=== PATIENT | female | born 1940 | race Caucasian/White ===

== ENCOUNTER 2019-05-21 20:03 | Observation (INO) ==
--- NOTE | 2019-05-21 20:21 | Emergency Department Note ---
ED Disposition Clinical Impression: Anxiety Pulmonary emboli Qualifiers: Pulmonary embolism type: unspecified Chronicity: acute Acute cor pulmonale presence: without acute cor pulmonale Qualified Code(s): I26.99 - Other pulmonary embolism without acute cor pulmonale Dyspnea Qualifiers: Dyspnea type: unspecified Qualified Code(s): R06.00 - Dyspnea, unspecified Disposition: Admitted as Observation Condition on Discharge: Fair (Stable) Time of Disposition: 23:17 - Critical Care Critical Care Time: No Attestation: On , the high probability of a clinically significant, sudden or life threatening deterioration of the following system(s) required my full and direct attention, intervention and personal management. The time I documented below is in addition to time spent performing reported procedures but includes the following listed in this critical care notation. Medical Decision Making - Medical Records Medical records reviewed: Yes: I reviewed the patient's medical records. - Guicho Inquiry Pt receiving controlled substance: No Guicho was queried for this patient: No Vital Signs: 05/21/19 20:16 05/21/19 20:43 05/21/19 21:00 Temperature 97.6 F Temperature Source Oral Pulse Rate [Right] 89 80 85 Respiratory Rate 20 18 Blood Pressure [Right Arm] 175/82 H 158/96 H 139/85 Blood Pressure Mean [Right Arm] 113 116 103 Blood Pressure Source [Right Arm] Automatic Cuff Blood Pressure Position [Right Arm] Supine 02 Sat by Pulse Oximetry 93 L 96 93 L Oxygen Delivery Method Room Air Room Air - Lab Data Lab results reviewed: Yes: I reviewed the patient's lab results. Lab Results 05/21/19 20:15: WBC 12.2 H, RBC 4.89, Hgb 13.9, Hct 43.7, MCV 89.2, MCH 28.5, MCHC 31.9, RDW 14.3, Plt Count 233, MPV 8.3, Neut % (Auto) 66.2, Lymph % (Auto) 27.5, [place] % (Auto) 4.6, Eos % (Auto) 1.0, Baso % (Auto) 0.7, Neut # (Auto) 8.1 H, Lymph # (Auto) 3.4, [place] # (Auto) 0.6, Eos # (Auto) 0.1, Baso # (Auto) 0.1 05/21/19 20:15: PT 9.0 L, INR 0.86 L, APTT 25.7, D-Dimer 497 H* 05/21/19 20:15: Sodium 139, Potassium 4.1, Chloride 104, Carbon Dioxide 25, Anion Gap 14.1, BUN 28 H, Creatinine 1.30 H, Estimated Creat Clear 40, Estimated GFR 40 L, Est GFR ( Amer) 48 L, Glucose 108 H, Calcium 9.0, Troponin I < 0.02 05/21/19 20:15: B-Natriuretic Peptide 670 H 05/21/19 20:15: Total Bilirubin 0.3, Direct Bilirubin 0.1, Indirect Bilirubin 0.2, AST 18, ALT 30, Alkaline Phosphatase 118 H, Total Protein 6.7, Albumin 3.6 Result diagrams: 05/21/19 20:15 05/21/19 20:15 Orders (Tests/Meds): ED MEDICATIONS Generic Name Dose Route Start Last Admin Trade Name Saul PRN Reason Stop Dose Admin Sodium Chloride 2 ml 05/21/19 22:30 Saline Flush 10ml Syringe IV 06/20/19 22:29 NEEDED PRN to Dilute Lorazepam inj Sodium Chloride 10 ml 05/21/19 22:30 Saline Flush 10ml Syringe IV 06/20/19 22:29 NEEDED PRN Maintain IV Site Sodium Chloride 2 ml 05/21/19 23:15 Saline Flush 10ml Syringe IV 06/20/19 23:14 NEEDED PRN to Dilute Lorazepam inj Sodium Chloride 10 ml 05/21/19 23:15 Saline Flush 10ml Syringe IV 06/20/19 23:14 NEEDED PRN Maintain IV Site Discontinued Medications Generic Name Dose Route Start Last Admin Trade Name Saul PRN Reason Stop Dose Admin Diphenhydramine HCl 25 mg 05/21/19 21:56 05/21/19 21:57 Benadryl 50mg/1ml Vial IV 05/21/19 21:57 25 mg ONCE ONE Administration Enoxaparin Sodium 72 mg 05/21/19 23:15 Lovenox 80mg/0.8ml Syringe SQ 05/21/19 23:16 ONCE ONE Hydralazine HCl 20 mg 05/21/19 20:17 05/21/19 20:44 Apresoline 20mg/Ml 1ml Vial IV 05/21/19 20:18 20 mg ONCE ONE Administration Ioversol 70 ml 05/21/19 22:47 05/21/19 22:49 Rad-Optiray 350 100ml Vial IV 05/21/19 22:48 70 ml ONCE ONE Administration Protocol Lorazepam 0.5 mg 05/21/19 22:30 05/21/19 22:37 Ativan 2mg/Ml Vial IV 05/21/19 22:31 0.5 mg ONCE ONE Administration Lorazepam 0.5 mg 05/21/19 23:15 Ativan 2mg/Ml Vial IV 05/21/19 23:16 ONCE ONE Methylprednisolone Sodium Succinate 125 mg 05/21/19 21:56 05/21/19 21:57 Solu-Medrol 125mg/2ml Vial IV 05/21/19 21:57 125 mg ONCE ONE Administration Sodium Chloride 10 ml 05/21/19 22:47 05/21/19 22:50 Rad-Saline Flush 10ml Syringe IV 05/21/19 22:48 10 ml ONCE ONE Administration Sodium Chloride 40 ml 05/21/19 22:50 05/21/19 22:50 Rad-Ns 50ml Vial IV 05/21/19 22:51 40 ml ONCE ONE Administration ORDERS Category Date Time Status CT Chest w/PE protocol [CT angio chest] Stat Cat Scan 05/21/19 20:50 Taken Troponin I Q3H Lab 05/21/19 23:20 Received Troponin I Q3H Lab 05/22/19 02:15 Ordered ECG Request by /Chapin Stat Y 05/21/19 20:13 Ordered - Radiology Data #1 Image(s): Chest Image Reviewed: Yes I reviewed the patient's radiology image Preliminary reading of PCXR by myself: no free air; elevated right hemidiaphragm; normal mediastinum; no consolidation; mild increase in interstitial lung markings. - CT Data CT Scan: Head, Chest Time Received: 22:[address] Reviewed: Yes: I have viewed the radiologist's interpretation Findings Narrative: 22:00 CT head w/o contrast report: Negative for acute intracranial pathology. 22:43 CT PE chest report: 1. Questionable tiny segmental pulmonary emboli in the right lower lower love and left lower lobe distal segmental branches versus artifact related to respiratory motion. Followup advised. Alternatively, further evaluation with VQ scan could be entertained. 2. 9 mm nodule abutting on the left major fissure is nonspecific. For both low risk and high risk patients, consider CT at 3 months, PET/CT or biopsy. - ECG Data Tracing #1 I reviewed this ECG and interpreted as documented below: (EKG at 20:09 shows sinus rhythm with frequent PVC's at 91 BPM; LAD; anterior and inferior-posterior infarct (age undetermined).) Medical Decision Narrative: 22:48 Pt initially evaluated. Cardiopulmonary work up ordered. I did order hydralazine 20 mg IVP and her BP is improved. EKG and PCXR reviewed. Labs reviewed and pt noted to have an elevated d-dimer, so CT PE chest ordered. Report reviewed and case discussed on telephone with ad radiologist Dr. Garza. Pt was premedicated with Benadryl 25 mg IVP and SoluMedrol 125 mg IVP in light of her history of possible iodine allergy [address] PE chest was performed, pt appeared to be more anxious and restless. I evaluated the pt and believe her symptoms may be related to the medications, but also believe her initial anxiety had increased. I did order Ativan for her. At this point, I will discuss case with physician menswear salesperson for her PCP regarding admit to observation so she can have VQ performed tomorrow morning and for further rule out on her. Initial troponin normal. Pt and family aware of resu lts of work up, diagnosis and care plan. They understand, agree and all questions answered. 23:[address] Pearson who has agreed to admit pt to observation for Dr. Muhammad. Lovenox and an additional Ativan 0.5 mg IVP ordered. Resp/SOB HPI - General Stated Complaint: dizzy,SOB Time Seen by Provider: 05/21/19 20:08 Mode of Arrival: Ambulatory Source of Information: Patient, Spouse, Relative (son and daughter) Limitations: No Limitations - History of Present Illness Pt is here in the ER for evaluation c/o SOB. Onset earlier this afternoon. Pt denies chest pain. No chest heaviness, tightness. No back, shoulder or arm pain. No abdominal pain. Pt has HTN and states her BP has been elevated all day. Pt compliant with her medicines. She is a nonsmoker and does not have COPD/emphysema or other medical problems. Pt had an episode of dizziness when getting out of the car in ER parking lot. No ZAMORA. Pt has not been out in the heat and has not been more active over the past couple of days. No other complaints. - Related Data Home Medications Medication Instructions Recorded Confirmed Atenolol [Atenolol 50mg Tab] 50 mg PO HS 04/16/19 05/21/19 Hydralazine HCl [Hydralazine HCl 50 mg PO DAILY 04/16/19 05/21/19 25mg Tablet] Levothyroxine Sodium [Levoxyl] 50 mg PO DAILY 04/16/19 05/21/19 Metoclopramide HCl [Metoclopramide 10 mg PO DAILY 04/16/19 05/21/19 10mg Tablet] Omeprazole [Omeprazole 40mg 40 mg PO DAILY 04/16/19 05/21/19 Capsule] Potassium Chloride [Pot Chlor 10 10 meq PO DAILY 04/16/19 05/21/19 mEq Tab] Ropinirole HCl 1 mg PO DAILY 04/16/19 05/21/19 Temazepam [Restoril 30mg capsule] 30 mg PO HS 04/16/19 05/21/19 Alendronate Sodium 70 mg PO WEEKLY 05/21/19 05/21/19 Aspirin [Aspir 81] 81 mg PO DAILY 05/21/19 05/21/19 Cholecalciferol (Vitamin D3) 1,000 unit PO DAILY 05/21/19 05/21/19 [Vitamin D3 1,000 Unit Cap] Estradiol 0.5 mg PO DAILY 05/21/19 05/21/19 Allergies Allergy/AdvReac Type Severity Reaction Status Date / Time adhesive Allergy Intermediate I-RASH Verified 04/16/19 10:26 iodine Allergy Intermediate I-RASH Verified 04/16/19 10:26 Penicillins Allergy Intermediate I-RASH Verified 04/16/19 10:26 [facility] History - Hepatitis A Screen Drug use history?: No Attestation statement:: This patient has been screened for Hepatitis A risk factors. I have reviewed the patient's past medical history: Yes - Social History Alcohol Intake: never Occupational Status: other ROS Obtained: Yes All systems reviewed & no additional complaints - Constitutional Constitutional: Reports system reviewed and no additional complaints, except as docu - Eyes Eyes: Reports system reviewed and no additional complaints, except as docu - ENT Ears, Nose, Mouth, and Throat: Reports system reviewed and no additional com plaints, except as docu - Cardiovascular Cardiovascular: Reports system reviewed and no additional complaints, except as docu, Reports as per HPI, Denies chest pain, Reports dyspnea, Denies leg edema, Denies radiating jaw, neck or arm pain - Respiratory Respiratory: Yes system reviewed and no additional complaints, except as docu, Yes as per HPI, No chest congestion, No cough, Yes dyspnea, No dyspnea on exertion - Gastrointestinal Gastrointestingal: Reports: system reviewed and no additional complaints, except as docu - Genitourinary Female Genitourinary: Reports system reviewed and no additional complaints, except as docu - Musculoskeletal Musculoskeletal: Reports system reviewed and no additional complaints, except as docu - Integumentary/Breasts Skin/Breast: Reports system reviewed and no additional complaints, except as docu - Neurologic Neurologic: Reports system reviewed and no additional complaints, except as docu, Reports as per HPI, Denies confusion, Reports dizziness, Denies focal weakness, Denies headache(s) - Endocrine Endocrine: Reports system reviewed and no additional complaints, except as docu - Hematologic/Lymphatic Henatologic/Lymphatic: Reports system reviewed and no additional complaints, except as docu - Allergic/Immunologic Allergic/Immunologic: Reports system reviewed and no additional complaints, except as docu Physical Exam - General General appearance: alert, in no apparent distress, anxious (mildly) - Head Head exam: atraumatic, normocephalic, normal inspection - Eye Eye exam: Present: normal appearance, PERRL, EOMI - ENT ENT exam: Present: normal exam, normal oropharynx, mucous membranes moist - Neck Neck exam: Present: full ROM, trachea midline - Chest Chest inspection: Present: normal inspection, symmetric chest wall rise - Respiratory Respiratory exam: Present: normal lung sounds bilaterally, respiratory distress - Cardiovascular Cardiovascular exam: Present: regular rate, normal rhythm, normal heart sounds - Abdominal Exam Abdominal exam: Present: soft, normal bowel sounds. Absent: tenderness, guarding, rebound, rigidity - Extremities Exam Extremities exam: Present: normal inspection, full ROM, normal capillary refill. Absent: pedal edema - Neurological Exam Neurological exam: Present: alert, oriented X3, CN II-XII intact - Psychiatric Psychiatric exam: Present: normal mood, anxious (mildly) - Skin Skin exam: Present: warm, dry, intact. Absent: rash, diaphoresis
[2019-05-21 20:31] LABS: Basophils # 0.1 K/mm3 (0-0.2); Basophils % 0.7 % (0.1-2.0); Eosinophils # 0.1 K/mm3 (0.0-0.4); Hematocrit 43.7 % (37.0-47.0); Hemoglobin 13.9 g/dL (12.2-16.2); Lymphocytes # 3.4 K/mm3 (0.7-4.5); Lymphocytes % 27.5 % (10-50); Mean Corpuscular HGB Conc 31.9 g/dL (31.8-35.4); Mean Corpuscular Volume 89.2 fl (81-99); Mean Platelet Volume 8.3 fl (7.4-10.4); Monocytes # 0.6 K/mm3 (0.1-1.0); Monocytes % 4.6 % (1.7-9.3); Neutrophils # 8.1 K/mm3 (1.8-7.8); Neutrophils % 66.2 % (37.0-80.0); Platelet Count 233 K/mm3 (142-424); Red Blood Count 4.89 M/mm3 (4.20-5.40); Red Cell Distribution Width 14.3 % (11.5-17.5); White Blood Count 12.2 K/mm3 (4.8-10.8)
[2019-05-21 20:42] LABS: Activated Partial Thrombo Time 25.7 seconds (23.6-34.0); INR 0.86 (0.9-1.1)
[2019-05-21 20:47] LABS: Anion Gap 14.1 mEq/L (5-15); Blood Urea Nitrogen 28 mg/dL (7-18); Carbon Dioxide 25 mmol/L (21.0-32.0); Chloride 104 mmol/L (98-107); Glucose 108 mg/dL (74-106); Sodium 139 mmol/L (136-145)
[2019-05-21 20:50] LABS: Albumin Level 3.6 gm/dL (3.4-5.0); Bilirubin,Direct 0.1 mg/dL (0.0-0.2); Bilirubin,Indirect 0.2 mg/dL (0.0-0.9); Bilirubin,Total 0.3 mg/dL (0.2-1.0); Total Protein,Serum 6.7 gm/dL (6.4-8.2)
[2019-05-22 06:08] LABS: Basophils % 0.1 % (0.1-2.0); Eosinophils % 0.1 % (0.1-12.0); Hematocrit 41.2 % (37.0-47.0); Hemoglobin 12.8 g/dL (12.2-16.2); Lymphocytes # 0.6 K/mm3 (0.7-4.5); Lymphocytes % 7.2 % (10-50); Mean Corpuscular Volume 89.8 fl (81-99); Mean Platelet Volume 8.5 fl (7.4-10.4); Monocytes # 0.2 K/mm3 (0.1-1.0); Monocytes % 2.6 % (1.7-9.3); Neutrophils # 7.8 K/mm3 (1.8-7.8); Platelet Count 202 K/mm3 (142-424); Red Blood Count 4.58 M/mm3 (4.20-5.40); Red Cell Distribution Width 14.3 % (11.5-17.5); White Blood Count 8.7 K/mm3 (4.8-10.8)
[2019-05-22 06:30] LABS: Blood Urea Nitrogen 25 mg/dL (7-18); Calcium 8.8 mg/dL (8.5-10.1); Carbon Dioxide 25 mmol/L (21.0-32.0); Chloride 104 mmol/L (98-107); Glucose 156 mg/dL (74-106); Sodium 138 mmol/L (136-145)
--- NOTE | 2019-05-22 07:15 | History & Physical Report ---
*Admission Date: 05/22/19 *Chief complaint: Concerns about blood pressure *History of present illness: 79-year-old female with history of poorly controlled hypertension who presented to the emergency department because she had been monitoring her blood pressure at home throughout the day and it was steadily rising. She became concerned and somewhat anxious about this and presented to the emergency department. In the ER she was evaluated. Please see ER note for full details, but there became concern about pulmonary embolism after a d-dimer was elevated. Patient underwent CT angiogram which could not completely rule out the presence of some small pulmonary embolisms and therefore patient was admitted after being given subcu Lovenox for further testing today to include VQ scanning. This morning the patient has no complaints. She denies shortness of breath, chest pain, hemoptysis. Her biggest concern is her blood pressure. She informs me that she is seeing a rubber vulcanizing machine operator who adjusted some of her medicines and since adjusting those medicines she feels like her blood pressure has actually been higher. She currently takes atenolol 50 mg at night and hydralazine 50 mg twice daily [facility] History I have reviewed the patient's past medical history: Yes Medical History: Reports:: Cancer (NON-HODGKINS LYM), Congestive Heart Failure, Hypertension Denies:: Diabetes Mellitus Type 1, Diabetes Mellitus Type 2, Home Oxygen, MRSA *Have you ever received a pneumonia vaccine?: Yes *Have you received a flu vaccine this season?: Yes Other Medical History: Reports: Hormone Therapy, Hypothyroidism Other Surgeries: Yes: Appendectomy, Hysterectomy-Total Amputation: No - *Social History Educational Level: Completed High School Smoking Status: Never smoker Alcohol Intake: never *Occupational Status:: retired Housing: house Household Members: spouse *Travel in the last 8 weeks: None - Psychiatric History Expresses thoughts of harming self/others: None Suicide Plan Description: No Plan Family Hx:: Coronary Artery Disease, Diabetes, Heart Attack Review of Systems - Review of Systems Review of systems:: pertinent systems reviewed and negative unless documented below - Constitutional Denies body ache(s), Denies chills - *Cardiovascular Denies chest pain - *Respiratory Denies change in phlegm color, Denies chest congestion, Denies cough, Denies shortness of breath, Denies shortness of breath with activity, Denies excessive phlegm production, Denies coughing up blood, Denies pain on inspiration, Denies pain with cough, Denies wheezing - *Musculoskeletal Denies joint swelling - *Neurologic Reports dizziness, Denies confusion, Denies localized weakness, Denies headache(s) Meds Home Medications Medication Instructions Recorded Confirmed Type Atenolol [Atenolol 50mg Tab] 50 mg PO HS 04/16/19 05/22/19 History Hydralazine HCl [Hydralazine HCl 50 mg PO DAILY 04/16/19 05/22/19 History 25mg Tablet] Levothyroxine Sodium [Levoxyl] 50 mcg PO DAILY 04/16/19 05/22/19 History Metoclopramide HCl [Metoclopramide 5 mg PO BID 04/16/19 05/22/19 History 10mg Tablet] Omeprazole [Omeprazole 40mg 40 mg PO DAILY 04/16/19 05/22/19 History Capsule] Potassium Chloride [Pot Chlor 10 10 meq PO DAILY 04/16/19 05/22/19 History mEq Tab] Ropinirole HCl 1 mg PO HS 04/16/19 05/22/19 History Temazepam [Restoril 30mg capsule] 30 mg PO HS 04/16/19 05/22/19 History Alendronate Sodium 70 mg PO WEEKLY 05/21/19 05/21/19 History Aspirin [Aspir 81] 81 mg PO DAILY 05/21/19 05/22/19 History Cholecalciferol (Vitamin D3) 1,000 unit PO DAILY 05/21/19 05/22/19 History [Vitamin D3 1,000 Unit Cap] Estradiol 0.05 mg PO DAILY 05/21/19 05/22/19 History Allergies Allergy/AdvReac Type Severity Reaction Status Date / Time adhesive Allergy Intermediate I-RASH Verified 04/16/19 10:26 iodine Allergy Intermediate I-RASH Verified 04/16/19 10:26 Penicillins Allergy Intermediate I-RASH Verified 04/16/19 10:26 Exam Vital signs and Labs for Last 24 Hours: Temp Pulse Resp BP Pulse Ox 97.9 F 70 20 125/69 93 L 05/22/19 03:32 05/22/19 04:00 05/22/19 03:32 05/22/19 03:32 05/22/19 03:32 Laboratory Results - last 24 hr 05/21/19 20:15: WBC 12.2 H, RBC 4.89, Hgb 13.9, Hct 43.7, MCV 89.2, MCH 28.5, MCHC 31.9, RDW 14.3, Plt Count 233, MPV 8.3, Neut % (Auto) 66.2, Lymph % (Auto) 27.5, [place] % (Auto) 4.6, Eos % (Auto) 1.0, Baso % (Auto) 0.7, Neut # (Auto) 8.1 H, Lymph # (Auto) 3.4, [place] # (Auto) 0.6, Eos # (Auto) 0.1, Baso # (Auto) 0.1 05/21/19 20:15: PT 9.0 L, INR 0.86 L, APTT 25.7, D-Dimer 497 H* 05/21/19 20:15: Sodium 139, Potassium 4.1, Chloride 104, Carbon Dioxide 25, Anion Gap 14.1, BUN 28 H, Creatinine 1.30 H, Estimated Creat Clear 40, Estimated GFR 40 L, Est GFR ( Amer) 48 L, Glucose 108 H, Calcium 9.0, Troponin I < 0.02 05/21/19 20:15: B-Natriuretic Peptide 670 H 05/21/19 20:15: Total Bilirubin 0.3, Direct Bilirubin 0.1, Indirect Bilirubin 0.2, AST 18, ALT 30, Alkaline Phosphatase 118 H, Total Protein 6.7, Albumin 3.6 05/21/19 23:20: Troponin I < 0.02 05/22/19 02:35: Troponin I < 0.02 05/22/19 05:45: Sodium 138, Potassium 4.0, Chloride 104, Carbon Dioxide 25, Anion Gap 13.0, BUN 25 H, Creatinine 1.33 H, Estimated Creat Clear 40, Estimated GFR 38 L, Est GFR ( Amer) 47 L, Glucose 156 H D, Calcium 8.8, Troponin I < 0.02 05/22/19 05:45: WBC 8.7 D, RBC 4.58, Hgb 12.8, Hct 41.2, MCV 89.8, MCH 27.9, MCHC 31.0 L, RDW 14.3, Plt Count 202, MPV 8.5, Neut % (Auto) 90.0 H, Lymph % (Auto) 7.2 L, [place] % (Auto) 2.6, Eos % (Auto) 0.1, Baso % (Auto) 0.1, Neut # (Auto) 7.8, Lymph # (Auto) 0.6 L, [place] # (Auto) 0.2, Eos # (Auto) 0.0, Baso # (Auto) 0.0 I & O for Last 24 hours: Intake & Output 05/19/19 05/20/19 05/21/19 05/22/19 11:59 11:59 11:59 11:59 Intake Total 0 / 0 Balance 0 / 0 Weight 161 lb 9 oz - Constitutional no acute distress - *Routine HEENT Exam Head: Present: normocephalic Eye: Present: EOMI ENT: Present: mucous membranes moist - *Routine Neck Exam Present: supple, full ROM, JVD - *Routine Respiratory Exam Present: CTA bilaterally. Absent: accessory muscle use - *Routine Cardiovascular Exam Present: RRR, Normal S1, Normal S2. Absent: S3, S4, click, JVD - *Routine Extremities Exam Present: full ROM, pulses intact, normal capillary refill. Absent: cyanosis, clubbing, edema, calf tenderness, palpable cord, Ivan's sign, tenderness, pallor, extremity cold to touch Assessment and Plan (1) Malignant hypertension Current visit: Yes Status: Chronic Category: Medical Code(s): I10 - Essential (primary) hypertension Patient will undergo renal artery Doppler today. Continue home medications (2) Pulmonary emboli Current visit: Yes Status: Suspected Qualifiers: Pulmonary embolism type: unspecified Chronicity: acute Acute cor pulmonale presence: without acute cor pulmonale Qualified Code(s): I26.99 - Other pulmonary embolism without acute cor pulmonale Category: Medical Code(s): I26.99 - Other pulmonary embolism without acute cor pulmonale Patient will undergo bilateral lower extremity venous Dopplers and VQ scan today to assess the presence of pulmonary embolism. Patient has no risk factors and clinically her presentation does not fit with pulmonary embolism
[2019-05-22 07:46] LABS: Lymphocytes % 9 % (10-50); Neutrophils % 91 % (42-76); RBC Morphology Normal; Total Cells Counted 100
--- NOTE | 2019-05-22 17:38 | Discharge Summary ---
General - General Admission date:: 05/22/19 Discharge date: 05/22/19 HPI HPI: 79-year-old female with history of poorly controlled hypertension who presented to the emergency department because she had been monitoring her blood pressure at home throughout the day and it was steadily rising. She became concerned and somewhat anxious about this and presented to the emergency department. In the ER she was evaluated. Please see ER note for full details, but there became concern about pulmonary embolism after a d-dimer was elevated. Patient underwent CT angiogram which could not completely rule out the presence of some small pulmonary embolisms and therefore patient was admitted after being given subcu Lovenox for further testing today to include VQ scanning. This morning the patient has no complaints. She denies shortness of breath, chest pain, hemoptysis. Her biggest concern is her blood pressure. She informs me that she is seeing a harmonica maker who adjusted some of her medicines and since adjusting those medicines she feels like her blood pressure has actually been higher. She currently takes atenolol 50 mg at night and hydralazine 50 mg twice daily Hospital Course Hospital Course: Patient was admitted for follow-up V/Q scanning. VQ scanning performed on May 22 was interpreted as low probability of pulmonary embolism. Patient has malignant hypertension and is currently taking atenolol 50 mg at night and hydralazine 50 mg twice daily. Renal artery ultrasound was performed and final result is not back yet at the time of this discharge summary. Patient will continue her current medicines at discharge. She follows along with the harmonica maker in [place]. On CT scanning patient was noted to have a 9 x 9 mm spiculated mass in the left lung. This will require follow-up and my office will attempt to arrange a PET CT scan. On the afternoon of the patient was discharged home. She will follow-up in the office on May 26 at 10 AM Objective Vital signs: Temp Pulse Resp BP Pulse Ox 97.9 F 81 16 129/72 98 05/22/19 16:00 05/22/19 16:00 05/22/19 16:00 05/22/19 16:00 05/22/19 16:00 Results Labs on day of discharge: Labs from last 24 hours 05/22/19 05/22/19 05/22/19 05:45 05:45 02:35 WBC 8.7 D RBC 4.58 Hgb 12.8 Hct 41.2 MCV 89.8 MCH 27.9 MCHC 31.0 L RDW 14.3 Plt Count 202 MPV 8.5 Neut % (Auto) 90.0 H Lymph % (Auto) 7.2 L [place] % (Auto) 2.6 Eos % (Auto) 0.1 Baso % (Auto) 0.1 Neut # (Auto) 7.8 Lymph # (Auto) 0.6 L [place] # (Auto) 0.2 Eos # (Auto) 0.0 Baso # (Auto) 0.0 Total Counted 100 Neutrophils % (Manual) 91 H Lymphocytes % (Manual) 9 L Platelet Estimate Normal RBC Morphology Normal PT INR APTT D-Dimer Sodium 138 Potassium 4.0 Chloride 104 Carbon Dioxide 25 Anion Gap 13.0 BUN 25 H Creatinine 1.33 H Estimated Creat Clear 40 Estimated GFR 38 L Est GFR ( Amer) 47 L Glucose 156 H D Calcium 8.8 Total Bilirubin Direct Bilirubin Indirect Bilirubin AST ALT Alkaline Phosphatase Troponin I < 0.02 < 0.02 B-Natriuretic Peptide Total Protein Albumin 05/21/19 05/21/19 05/21/19 23:20 20:15 20:15 WBC RBC Hgb Hct MCV MCH MCHC RDW Plt Count MPV Neut % (Auto) Lymph % (Auto) [place] % (Auto) Eos % (Auto) Baso % (Auto) Neut # (Auto) Lymph # (Auto) [place] # (Auto) Eos # (Auto) Baso # (Auto) Total Counted Neutrophils % (Manual) Lymphocytes % (Manual) Platelet Estimate RBC Morphology PT INR APTT D-Dimer Sodium Potassium Chloride Carbon Dioxide Anion Gap BUN Creatinine Estimated Creat Clear Estimated GFR Est GFR ( Amer) Glucose Calcium Total Bilirubin 0.3 Direct Bilirubin 0.1 Indirect Bilirubin 0.2 AST 18 ALT 30 Alkaline Phosphatase 118 H Troponin I < 0.02 B-Natriuretic Peptide 670 H Total Protein 6.7 Albumin 3.6 05/21/19 05/21/19 05/21/19 20:15 20:15 20:15 WBC 12.2 H RBC 4.89 Hgb 13.9 Hct 43.7 MCV 89.2 MCH 28.5 MCHC 31.9 RDW 14.3 Plt Count 233 MPV 8.3 Neut % (Auto) 66.2 Lymph % (Auto) 27.5 [place] % (Auto) 4.6 Eos % (Auto) 1.0 Baso % (Auto) 0.7 Neut # (Auto) 8.1 H Lymph # (Auto) 3.4 Foster # (Auto) 0.6 Eos # (Auto) 0.1 Baso # (Auto) 0.1 Total Counted Neutrophils % (Manual) Lymphocytes % (Manual) Platelet Estimate RBC Morphology PT 9.0 L INR 0.86 L APTT 25.7 D-Dimer 497 H* Sodium 139 Potassium 4.1 Chloride 104 Carbon Dioxide 25 Anion Gap 14.1 BUN 28 H Creatinine 1.30 H Estimated Creat Clear 40 Estimated GFR 40 L Est GFR ( Amer) 48 L Glucose 108 H Calcium 9.0 Total Bilirubin Direct Bilirubin Indirect Bilirubin AST ALT Alkaline Phosphatase Troponin I < 0.02 B-Natriuretic Peptide Total Protein Albumin DS: Diagnosis - Discharge Diagnosis (1) Pulmonary emboli Status: Ruled-out (2) Malignant hypertension Status: Chronic (3) Lung mass Status: Acute Discharge Plan - Patient Discharge Instructions ACTIVITY: Continue current activity DIET: continue same diet Patient Instructions: High Blood Pressure - Follow up Plan Follow up with: Maico Muhammad MD [Staff Physician] - 05/26/19 10:00 am Disposition: Home, Self-Snf Medications: Home Medications Medication Instructions Recorded Confirmed Type Atenolol [Atenolol 50mg Tab] 50 mg PO HS 04/16/19 05/22/19 History Levothyroxine Sodium [Levoxyl] 50 mcg PO DAILY 04/16/19 05/22/19 History Omeprazole [Omeprazole 40mg 40 mg PO DAILY 04/16/19 05/22/19 History Capsule] Potassium Chloride [Pot Chlor 10 10 meq PO DAILY 04/16/19 05/22/19 History mEq Tab] Ropinirole HCl 1 mg PO HS 04/16/19 05/22/19 History Temazepam [Restoril 30mg capsule] 30 mg PO HS 04/16/19 05/22/19 History Alendronate Sodium 70 mg PO WEEKLY 05/21/19 05/21/19 History Aspirin [Aspir 81] 81 mg PO DAILY 05/21/19 05/22/19 History Cholecalciferol (Vitamin D3) 1,000 unit PO DAILY 05/21/19 05/22/19 History [Vitamin D3 1,000 Unit Cap] Hydralazine HCl 50 mg PO BID 05/22/19 05/22/19 History Metoclopramide HCl [Reglan 5mg 5 mg PO DAILY 05/22/19 05/22/19 History Tablet] Prescriptions/Medication Reconciliation: Continued Temazepam [Restoril 30mg capsule] 30 mg PO HS Omeprazole [Omeprazole 40mg Capsule] 40 mg PO DAILY Levothyroxine Sodium [Levoxyl] 50 mcg PO DAILY Ropinirole HCl 1 mg PO HS Aspirin [Aspir 81] 81 mg PO DAILY Alendronate Sodium 70 mg PO WEEKLY Atenolol [Atenolol 50mg Tab] 50 mg PO HS Potassium Chloride [Pot Chlor 10 mEq Tab] 10 meq PO DAILY Cholecalciferol (Vitamin D3) [Vitamin D3 1,000 Unit Cap] 1,000 unit PO DAILY Hydralazine HCl 50 mg PO BID Discontinued Metoclopramide HCl [Reglan 5mg Tablet] 5 mg PO DAILY
== END 2019-05-22 18:24 | disposition home or self-care (01) ==
LOC: 2ND 20:03 → ER 20:03 → 2ND 05-22 00:28
PROVIDERS: ADMIT Internal Medicine Adolescent Medicine; ATTEND Family Medicine
DX: Z79.899 Other long term (current) drug therapy; Z79.82 Long term (current) use of aspirin; R91.8 Other nonspecific abnormal finding of lung field; Z88.0 Allergy status to penicillin; I10 Essential (primary) hypertension
CPT/HCPCS: 36415; 70450; 71010; 71020; 71045; 71046; 71275; 78582; 80048; 80076; 83880; 84484; 85007; 85025; 85378; 85610; 85730; 93005; 93970; 93976; 96372; 96374; 96375; 99285; A9540; A9567; G0378; Q9967

== ENCOUNTER → 2019-08-30 14:07 | Outpatient (CLI) | payer MEDICARE, OTHER, SELFPAY ==
--- NOTE | 2019-08-30 14:09 | CT_ITS ---
PROCEDURE: CT CHEST WO CON CLINICAL INDICATION: PULMONARY NODULE Pulmonary nodule follow-up with cough COMPARISON: [facility] CT angio chest from 05/21/2019 TECHNIQUE: Axial images obtained with sagittal and coronal reformats. All CT scans at the facility use one or more dose reduction, viz: automated exposure control, ma/kV adjustment per patient size (including targeted exams where dose is matched to indication, i.e. head), or iterative reconstruction technique. FINDINGS: No mediastinal or hilar mass or adenopathy. Coronary artery calcifications are present. There are chronic changes with scattered areas of scarring. The spiculated nodule within the superior segment of the left lower lobe is once again noted and is not significantly changed. This nodule measures approximately 8 mm. No new nodules are evident. No effusions or infiltrates. Upper abdominal images show cholelithiasis. The spleen has a lobular contour with coarse calcification. There is a splenic artery aneurysm once again noted. Subarticular cystic change involves the glenoid on the right with osteoarthritic changes of the right shoulder. There are degenerative changes of the thoracic spine. IMPRESSION: 1. Overall no change in the suspicious left upper lobe nodule in 3 months. Six-month follow-up suggested 2. COPD with scarring 3. Cholelithiasis. 4. 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
== END ==
PROVIDERS: PCP Family Medicine; Visit Provider Family Medicine
DX: R91.1 Solitary pulmonary nodule (principal)
CPT/HCPCS: 71250

== ENCOUNTER → 2020-01-08 14:50 | Outpatient (CLI) | payer MEDICARE, OTHER, SELFPAY ==
--- NOTE | 2020-01-08 15:02 | XR_ITS ---
PROCEDURE: XR SHOULDER RT MIN 2V CLINICAL INDICATION: ROTATOR CUFF OF RT SHOULDER...PAIN Posttraumatic COMPARISON: [id number] [id number] VIEWS from 05/09/2013 SHOU3L [id number] VIEWS from 05/09/2013 FINDINGS: There are mild osteoarthritic changes the of the glenohumeral joint and acromioclavicular joint. No fracture or dislocation. There is mild subacromial stenosis. Overall no significant change from 05/09/2013. IMPRESSION: Mild osteoarthritic change with subacromial stenosis Dictated by: Sam Vences MD 01/08/2020 15:21 Electronically signed by Sam Vences MD in [place] 01/08/2020 15:21
== END ==
PROVIDERS: PCP Family Medicine; Visit Provider Family Medicine
DX: M75.101 Unspecified rotator cuff tear or rupture of right shoulder, not specified as traumatic (principal)
CPT/HCPCS: 73030

== ENCOUNTER → 2020-03-12 11:10 | Outpatient (CLI) | payer MEDICARE, OTHER, SELFPAY ==
--- NOTE | 2020-03-12 11:20 | XR_ITS ---
PROCEDURE: XR CHEST 2V CLINICAL HISTORY: SOB Shortness of breath COMPARISON: CXR CHEST(2 VIEWS-NOT PORTABLE) from 04/14/2015 CXR CHEST(2 VIEWS-NOT PORTABLE) from 04/24/2015 Chest from 04/16/2019 CT CHEST WO CON from 08/30/2019 FINDINGS: The cardiomediastinal silhouette and pulmonary vascularity are within normal limits. There are fibrotic changes in the right upper lobe and there is mild elevation of the right hemidiaphragm as before. Postsurgical changes lumbar spine. Mild thoracic kyphosis. IMPRESSION: No change with no acute finding Dictated by: Sam Vences MD 03/12/2020 12:35 Electronically signed by Sam Vences MD in [place] 03/12/2020 12:35
[2020-03-12 12:17] LABS: Basophils # 0.1 K/mm3 (0-0.2); Basophils % 1.1 % (0.1-2.0); Eosinophils # 0.1 K/mm3 (0.0-0.4); Eosinophils % 1.5 % (0.1-12.0); Hematocrit 42.3 % (37.0-47.0); Hemoglobin 13.9 g/dL (12.2-16.2); Lymphocytes # 1.3 K/mm3 (0.7-4.5); Lymphocytes % 21.7 % (10-50); Mean Corpuscular HGB Conc 32.8 g/dL (31.8-35.4); Mean Corpuscular Hemoglobin 30.2 pg (27.0-31.2); Mean Corpuscular Volume 92.3 fl (81-99); Mean Platelet Volume 9.8 fl (7.4-10.4); Monocytes # 0.4 K/mm3 (0.1-1.0); Monocytes % 6.8 % (1.7-9.3); Neutrophils # 4.2 K/mm3 (1.8-7.8); Platelet Count 236 K/mm3 (142-424); Red Blood Count 4.58 M/mm3 (4.20-5.40); Red Cell Distribution Width 14.8 % (11.5-17.5); White Blood Count 6.1 K/mm3 (4.8-10.8)
[2020-03-12 13:09] LABS: Alanine Aminotransferase 20 U/L (12-78); Albumin Level 4.6 g/dl (3.5-5.0); Albumin/Globulin Ratio 1.6 (1.1-1.8); Alkaline Phosphatase 67 U/L (38-126); Anion Gap 11.7 mEq/L (5-15); Aspartate Amino Transferase 25 U/L (14-36); Blood Urea Nitrogen 31 mg/dl (7-17); Carbon Dioxide 27 mmol/L (22.0-30.0); Chloride 102 mmol/L (98-107); Estimated Glomerular Filt Rate 36 ml/min (>60); GFR (African American) 44 ML/MIN (>60); Globulin 2.8 g/dL (1.3-3.2); Glucose 113 mg/dl (74-100); Potassium 3.7 mmoL/L (3.5-5.1); Sodium 137 mmol/L (136-145); Total Protein,Serum 7.4 g/dl (6.3-8.2)
[2020-03-12 13:20] LABS: Troponin I < 0.01 ng/ml (0.00-0.034)
[2020-03-13 08:42] LABS: Myoglobin 69 ng/mL (25-58)
== END ==
PROVIDERS: PCP Family Medicine; Visit Provider Family Medicine
DX: R06.02 Shortness of breath (principal); I10 Essential (primary) hypertension
CPT/HCPCS: 36415; 71046; 80053; 83874; 84484; 85025

== ENCOUNTER 2020-04-21 13:18 | Emergency (ER) | payer MEDICARE, OTHER, SELFPAY ==
[2020-04-21 13:19] VITALS: BP 138/87; PULSE 89; RESP 24; TEMP 36.8; O2SAT 93; BMI 25.0
--- NOTE | 2020-04-21 13:34 | XR_ITS ---
PROCEDURE: XR CHEST 2V CLINICAL HISTORY: soa Shortness of air COMPARISON: CXR CHEST(2 VIEWS-NOT PORTABLE) from 04/24/2015 Chest from 04/16/2019 XR CHEST 2V from 03/12/2020 CT ANGIO CHEST from 04/21/2020 FINDINGS: The cardiomediastinal silhouette and pulmonary vascularity are within normal limits. Mild atelectatic changes are present in the right upper lobe Mild degenerative changes thoracic spine IMPRESSION: Mild right upper lobe atelectasis Dictated by: Sam Vences MD 04/21/2020 18:53 Electronically signed by Sam Vences MD in [place] 04/21/2020 18:53
--- NOTE | 2020-04-21 13:34 | ECG_ITS ---
APPROVED REPORT Exam: Resting ECG HR:85 bpm ECG Measurements Heart Rate 85 AXES AL 154 P 5 QRSd 120 QRS -52 QT 412 T 8 QTc 490 <Conclusion> Sinus rhythm with occasional and consecutive premature ventricular complexes Right bundle branch block Left anterior fascicular block Bifascicular block Cannot rule out Anterior infarct, age undetermined Abnormal ECG Electronically signed by : Maico Pearson, 04/24/2020 17:11:29
--- NOTE | 2020-04-21 13:36 | CT_ITS ---
PROCEDURE: CT ANGIO CHEST CLINCIAL INDICATION: soa Shortness of air, shortness of breath, generalized weakness, non-Hodgkin's lymphoma COMPARISON: [facility] CT angio chest from 05/21/2019 CT CHEST WO CON from 08/30/2019 TECHNIQUE: IV Contrast: 70ML OPTIRAY 350 Axial images obtained with sagittal and coronal reformats. All CT scans at the facility use one or more dose reduction, viz: automated exposure control, ma/kV adjustment per patient size (including targeted exams where dose is matched to indication, i.e. head), or iterative reconstruction technique. FINDINGS: HEART AND MEDIASTINAL STRUCTURES: No evidence of pulmonary embolus or aortic aneurysm. Calcified nodule involves the left lobe of the thyroid gland posteriorly 6 mm. Coronary artery calcifications are present. No mediastinal or hilar mass or adenopathy. LUNGS AND PLEURAL SPACES: There is evidence of old granulomatous disease. Mild atelectatic or fibrotic change right upper lobe. There is a 12 x 8 mm irregular nodular lesion in the left major fissure superiorly probably not significantly changed. BONY STRUCTURES: Degenerative changes of the thoracic spine UPPER ABDOMEN: There are multiple gallstones present. There is a splenic artery aneurysm in the hilum of the spleen at 10 mm. ADDITIONAL FINDINGS: No other significant abnormalities. IMPRESSION: 1. No evidence of pulmonary embolus. 2. No acute finding. 3. Persistent 12 x 8 mm irregular nodular opacity in the left upper lobe in the fissure region which does not appear significantly changed. Continued follow-up is however suggested as the nodule does have some irregular margination. 4. Cholelithiasis Dictated by: Sam Vences MD 04/22/2020 12:06 Electronically signed by Sam Vences MD in [place] 04/22/2020 12:06
--- NOTE | 2020-04-21 13:39 | [facility].EDGENADL ---
ED Disposition Clinical Impression: UTI (urinary tract infection) Qualifiers: Urinary tract infection type: acute cystitis Hematuria presence: without hematuria Qualified Code(s): N30.00 - Acute cystitis without hematuria Asthma with exacerbation Qualifiers: Asthma severity: moderate Asthma persistence: persistent Qualified Code(s): J45.41 - Moderate persistent asthma with (acute) exacerbation Disposition: Home, Self-Care Condition on Discharge: Good Instructions: DI for Shortness of Breath Additional Instructions: You have been evaluated for shortness of breath, possibly due to asthma exacerbation. Please take prednisone for 5 days as prescribed. Take Macrobid for urinary tract infection. Use your inhalers. Follow-up with your primary care physician. Prescriptions: nitrofurantoin macrocrystaL [Macrodantin] 100 mg PO BID 5 Days #10 cap Prescription Printed predniSONE [Prednisone 20mg Tab] 40 mg PO DAILY 5 Days #10 tab Prescription Printed Referrals: Alexei Lang MD [Primary Care Provider] - Time of Disposition: 15:53 - Critical Care Critical Care Time: No Attestation: On 04/21/20, the high probability of a clinically significant, sudden or life threatening deterioration of the following system(s) required my full and direct attention, intervention and personal management. The time I documented below is in addition to time spent performing reported procedures but includes the following listed in this critical care notation. Medical Decision Making - Medical Records Medical records reviewed: Yes: I reviewed the patient's medical records. - [place] Inquiry Pt receiving controlled substance: No Vital Signs: 04/21/20 13:19 04/21/20 13:49 Temperature 98.2 F Temperature Source Oral Pulse Rate [Right] 89 85 Respiratory Rate 24 23 Blood Pressure [Right Arm] 138/87 157/67 H Blood Pressure Mean [Right Arm] 104 97 02 Sat by Pulse Oximetry 93 L 96 Oxygen Delivery Method Room Air Nasal Cannula Oxygen Flow Rate (LPM) 2 - Lab Data Lab Results 04/21/20 13:30: WBC 9.2, RBC 4.58, Hgb 14.1, Hct 41.5, MCV 90.6, MCH 30.9, MCHC 34.1, RDW 14.9, Plt Count 235, MPV 8.9, Neut % (Auto) 70.9, Lymph % (Auto) 19.6, [place] % (Auto) 6.9, Eos % (Auto) 2.0, Baso % (Auto) 0.6, Neut # (Auto) 6.5, Lymph # (Auto) 1.8, [place] # (Auto) 0.6, Eos # (Auto) 0.2, Baso # (Auto) 0.1 04/21/20 13:30: Sodium 136, Potassium 3.8, Chloride 98, Carbon Dioxide 28, Anion Gap 13.8, BUN 35 H, Creatinine 1.40 H, Estimated Creat Clear 36, Estimated GFR 36 L, Est GFR ( Amer) 44 L, Glucose 137 H, Calcium 9.8, Troponin I < 0.01 04/21/20 13:30: NT-Pro-B Natriuret Pep 2800 H Result diagrams: 04/21/20 13:30 04/21/20 13:30 Orders (Tests/Meds): ED MEDICATIONS Discontinued Medications Generic Name Dose Route Start Last Admin Trade Name Freq PRN Reason Stop Dose Admin Aspirin 243 mg 04/21/20 13:36 04/21/20 13:43 Aspirin 81mg Chewable Tablet PO 04/21/20 13:37 243 mg ONCE ONE Administration ORDERS Category Date Time Status CT Chest w/PE protocol [CT angio chest] Stat Cat Scan 04/21/20 13:36 Ordered XR chest 2V Stat Exams 04/21/20 13:34 Ordered Troponin I Q3H Lab 04/21/20 16:45 Ordered Troponin I Q3H Lab 04/21/20 19:45 Ordered UA [Urinalysis and Microscopic] Stat Lab 04/21/20 13:45 Ordered ECG Request by Dr/Nse Stat Y 04/21/20 13:34 Ordered - CT Data CT Scan: Chest Time Received: 15:[address] Reviewed: Yes: I have reviewed the patient's CT results, I have viewed the radiologist's interpretation Findings Narrative: No evidence of pulmonary embolus. No aortic aneurysm. No dissection. Gallstones in the gallbladder. Medical Decision Narrative: In summary this is an 80-year-old female presenting to the emergency department with generalized fatigue and shortness of breath. She is in no acute distress on arrival to the emergency department. She is tearful and appears anxious. Initial oxygen saturation is
[2020-04-21 13:40] LABS: Basophils # 0.1 K/mm3 (0-0.2); Basophils % 0.6 % (0.1-2.0); Eosinophils # 0.2 K/mm3 (0.0-0.4); Hematocrit 41.5 % (37.0-47.0); Hemoglobin 14.1 g/dL (12.2-16.2); Lymphocytes # 1.8 K/mm3 (0.7-4.5); Lymphocytes % 19.6 % (10-50); Mean Corpuscular HGB Conc 34.1 g/dL (31.8-35.4); Mean Corpuscular Hemoglobin 30.9 pg (27.0-31.2); Mean Corpuscular Volume 90.6 fl (81-99); Mean Platelet Volume 8.9 fl (7.4-10.4); Monocytes # 0.6 K/mm3 (0.1-1.0); Monocytes % 6.9 % (1.7-9.3); Neutrophils # 6.5 K/mm3 (1.8-7.8); Neutrophils % 70.9 % (37.0-80.0); Platelet Count 235 K/mm3 (142-424); Red Blood Count 4.58 M/mm3 (4.20-5.40); Red Cell Distribution Width 14.9 % (11.5-17.5); White Blood Count 9.2 K/mm3 (4.8-10.8)
[2020-04-21 13:46] LABS: Anion Gap 13.8 mEq/L (5-15); Blood Urea Nitrogen 35 mg/dl (7-17); Calcium 9.8 mg/dl (8.4-10.2); Carbon Dioxide 28 mmol/L (22.0-30.0); Chloride 98 mmol/L (98-107); Creatinine Clearance Estimated 36 mL/min (50-200); Estimated Glomerular Filt Rate 36 ml/min (>60); GFR (African American) 44 ML/MIN (>60); Glucose 137 mg/dl (74-100); Potassium 3.8 mmoL/L (3.5-5.1); Sodium 136 mmol/L (136-145)
[2020-04-21 13:49] VITALS: BP 157/67; PULSE 85; RESP 23; O2SAT 96
[2020-04-21 13:56] LABS: NT Pro Brain Natriuretic Pep. 2800 pg/mL (0-450)
[2020-04-21 13:58] LABS: Troponin I < 0.01 ng/ml (0.00-0.034)
--- NOTE | 2020-04-21 14:15 | PC.NURSE ---
After discussing with pt about her allergy to iodine pt states she is not allergic to contrast dye, pt states she has had it before and she is allergic to the cleaning solution that has iodine in it. MD notified and stated to continue with CTA
[2020-04-21 16:59] VITALS: BP 136/85; PULSE 80; RESP 20; TEMP 36.8; O2SAT 98
[2020-04-21 17:08] LABS: Appearance,Urine CLOUDY (Clear); Bilirubin,Urine Negative (Negative); Blood, Urine Negative (Negative); Color,Urine YELLOW (Yellow); Glucose,Urine (UA) Negative (Negative); Ketones,Urine Negative (Negative); Leukocyte Esterase,Urine 1+ (Negative); Microscopic, Urine URINE MICROSCOPIC (MICROSCOPIC); Nitrate,Urine Negative (Negative); Protein,Urine Negative (Negative); Specific Gravity, Urine 1.015 (1.005-1.030); Urobilinogen,Urine 0.2 EU/dl (0.2)
[2020-04-21 17:21] LABS: Bacteria,Urine 2+ /lpf; Troponin I < 0.01 ng/ml (0.00-0.034); WBC,Urine 20-50 #/hpf (0-3)
== END 2020-04-21 17:02 | disposition home or self-care (01) ==
PROVIDERS: Emergency Provider Emergency Medicine; PCP Family Medicine
DX: N30.00 Acute cystitis without hematuria (principal); J45.41 Moderate persistent asthma with (acute) exacerbation; I50.9 Heart failure, unspecified; I10 Essential (primary) hypertension; E03.9 Hypothyroidism, unspecified; Z88.0 Allergy status to penicillin; Z79.899 Other long term (current) drug therapy
CPT/HCPCS: 71046; 71275; 80048; 81001; 83880; 84484; 85025; 87086; 87088; 87186; 93005; 99284; Q9967

== ENCOUNTER → 2020-06-10 10:43 | Outpatient (CLI) | payer MEDICARE, OTHER, SELFPAY ==
--- NOTE | 2020-06-10 10:49 | XR_ITS ---
PROCEDURE: XR HIP RT 2-3V W/PELVIS CLINICAL INDICATION: HYPOTHYROIDISM, R HIP PAIN COMPARISON: No exams were available for comparison FINDINGS: There are mild osteoarthritic changes involving both hips. There is fusion of the right SI joint with some sclerosis of the left SI joint. Subarticular cystic changes involve the acetabular roof on both sides. Osteoarthritic changes are also present at the symphysis pubis with sclerosis. Postsurgical changes are present in the lumbar spine. 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
== END ==
PROVIDERS: PCP Family Medicine; Visit Provider Family Medicine
DX: E03.9 Hypothyroidism, unspecified (principal); M25.551 Pain in right hip
CPT/HCPCS: 73502

== ENCOUNTER → 2021-02-11 12:15 | Outpatient (CLI) | payer MEDICARE, OTHER, SELFPAY ==
--- NOTE | 2021-02-11 12:24 | XR_ITS ---
PROCEDURE: XR FEMUR LT 2V CLINICAL INDICATION: LT LEG PAIN COMPARISON: No exams were available for comparison FINDINGS: No fracture or dislocation. No lytic or blastic change. There is normal mineralization. Mild to moderate osteoarthritic changes are present involving the left hip. Garment artifact noted in the pubic region and inguinal area. There is mild diffuse vascular calcification. Mild osteoarthritis is present also involving the knee. Other findings:None. IMPRESSION: Osteoarthritis otherwise negative Dictated by: Sam Vences MD 02/11/2021 12:50 Sam Vences MD in [facility] 02/11/2021 12:50
== END ==
PROVIDERS: PCP Family Medicine; Visit Provider Family Medicine
DX: M79.605 Pain in left leg (principal)
CPT/HCPCS: 73552

== ENCOUNTER → 2023-03-23 08:10 | Outpatient (POV) | payer MEDICARE, OTHER, SELFPAY | PROVIDERS: Visit Provider Dermatology | DX: Z00.00 Encounter for general adult medical examination without abnormal findings (principal) ==

== ENCOUNTER → 2023-04-15 16:00 | Outpatient (CLI) | payer MEDICARE, OTHER, SELFPAY | PROVIDERS: PCP Family Medicine; Visit Provider Dermatology | DX: M33.10 Other dermatomyositis, organ involvement unspecified (principal) | CPT/HCPCS: 36415 ==

== ENCOUNTER → 2023-05-04 07:52 | Outpatient (POV) | payer MEDICARE, OTHER, SELFPAY | PROVIDERS: Visit Provider Dermatology | DX: Z00.00 Encounter for general adult medical examination without abnormal findings (principal) ==

== ENCOUNTER → 2023-05-04 08:55 | Outpatient (CLI) | payer MEDICARE, OTHER, SELFPAY ==
[2023-05-04 09:40] LABS: Basophils % 0.6 % (0.1-2.0); Eosinophils # 0.2 K/mm3 (0.0-0.4); Hematocrit 41.2 % (37.0-47.0); Hemoglobin 12.8 g/dL (12.2-16.2); Lymphocytes # 0.8 K/mm3 (0.7-4.5); Lymphocytes % 16.8 % (10-50); Mean Corpuscular HGB Conc 31.1 g/dL (31.8-35.4); Mean Corpuscular Hemoglobin 29.1 pg (27.0-31.2); Mean Corpuscular Volume 93.7 fl (81-99); Mean Platelet Volume 9.4 fl (7.4-10.4); Monocytes # 0.4 K/mm3 (0.1-1.0); Monocytes % 9.1 % (1.7-9.3); Neutrophils # 3.2 K/mm3 (1.8-7.8); Neutrophils % 68.5 % (37.0-80.0); Platelet Count 187 K/mm3 (142-424); Red Cell Distribution Width 14.8 % (11.5-17.5); White Blood Count 4.7 K/mm3 (4.8-10.8)
[2023-05-04 09:57] LABS: Chloride 104 mmol/L (98-107); Potassium 4.3 mmoL/L (3.5-5.1); Sodium 140 mmol/L (136-145)
[2023-05-04 10:00] LABS: Alanine Aminotransferase 28 U/L (12-78); Albumin Level 3.7 g/dl (3.5-5.0); Albumin/Globulin Ratio 1.4 (1.1-1.8); Alkaline Phosphatase 81 U/L (38-126); Anion Gap 11.3 mEq/L (5-15); Aspartate Amino Transferase 30 U/L (14-36); Bilirubin,Total 0.7 mg/dl (0.2-1.3); Blood Urea Nitrogen 21 mg/dl (7-17); Calcium 8.7 mg/dl (8.4-10.2); Carbon Dioxide 29 mmol/L (22.0-30.0); Estimated Glomerular Filt Rate 47 ml/min (>60); GFR (African American) 57 ML/MIN (>60); Globulin 2.7 g/dL (1.3-3.2); Glucose 127 mg/dl (74-100); Total Protein,Serum 6.4 g/dl (6.3-8.2)
== END ==
PROVIDERS: PCP Family Medicine; Visit Provider Dermatology
DX: M33.13 Other dermatomyositis without myopathy (principal); Z51.81 Encounter for therapeutic drug level monitoring
CPT/HCPCS: 36415; 80053; 85025

== ENCOUNTER → 2023-05-14 06:44 | Outpatient (CLI) | payer MEDICARE, OTHER, SELFPAY ==
--- NOTE | 2023-05-14 06:50 | CT_ITS ---
FINAL REPORT TECHNIQUE: Axial images through the chest was performed with and without contrast by computed tomography. Sagittal and coronal reformatted images were obtained and reviewed. This study was performed with techniques to keep radiation doses as low as reasonably achievable (ALARA). Individualized dose reduction techniques using automated exposure control or adjustment of mA and/or kV according to the patient's size were employed. CLINICAL HISTORY: R/O MALIGNANCY, H/O LYMPHOMA COMPARISON: 04/21/2020 FINDINGS: CT CHEST W & W/O CONTRAST There is no mediastinal mass or adenopathy. No axillary mass is identified. There is no pleural or pericardial effusion. The heart is normal in size. There is mild scar or atelectasis in the lung bases. There is a calcified granuloma in the right lung. There is an 11 mm nodule adjacent to the left major fissure which is stable. IMPRESSION: Stable nodule adjacent to the left major fissure. Reviewed, Interpreted and Dictated by Ralph López III, MD Transcribed by Niya Muro Authenticated and [facility]
--- NOTE | 2023-05-14 06:50 | CT_ITS ---
FINAL REPORT TECHNIQUE: Multiple axial CT sections were performed from the foramen magnum to the vertex. Coronal reformatted images were also obtained. Precontrast and postcontrast injection images were obtained. This study was performed with technique to keep radiation doses as low as reasonably achievable, (ALARA). Individualized dose reduction techniques using automated exposure control or adjustment of mA and/or kV according to the patient size were employed. CLINICAL HISTORY: R/O MALIGNANCY, H/O LYMPHOMA COMPARISON: 05/21/2019 FINDINGS: The ventricles are normal in size. There is no evidence of hemorrhage. No masses are identified. No extra-axial fluid collection is seen. The sinuses are normal. No osseous abnormality is seen on the bone window images. Postcontrast images demonstrate no abnormal enhancement. IMPRESSION: Unremarkable CT of the head with and without contrast. Reviewed, Interpreted and Dictated by Ralph López III, MD Transcribed by Niya Muro Authenticated and [facility]
--- NOTE | 2023-05-14 06:50 | CT_ITS ---
FINAL REPORT TECHNIQUE: Axial CT images of the abdomen and pelvis were obtained before and after the administration of IV contrast. This study was performed with techniques to keep radiation doses as low as reasonably achievable (ALARA). Individualized dose reduction techniques using automated exposure control or adjustment of mA and/or kV according to the patient''s size were employed. CLINICAL HISTORY: R/O MALIGNANCY, H/O LYMPHOMA FINDINGS: Abdomen: There is a less than 1 cm cyst in the right hepatic lobe. There are multiple gallstones with gallbladder wall thickening, cholecystitis is not excluded. There is an irregular contour to the spleen with multiple coarse calcifications, may represent sequela of prior injury or post treatment change. 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 No adrenal masses present. The pancreas has an unremarkable appearance. There are small bilateral renal cysts with mild bilateral renal scarring. The aorta is normal in caliber. There is no free fluid or adenopathy. No mass or abnormal fluid collection is seen. Precontrast images demonstrate no evidence of nephrolithiasis. Pelvis: The appendix is not well visualized. There is a small gastric diverticulum. There is a small umbilical hernia containing fat. The patient is status post hysterectomy. There is fusion of L4-5. There are calcifications in the region of the bladder base/urethra of uncertain etiology. No inflammatory process is seen. There is no evidence of mass or adenopathy. There is no evidence of bowel obstruction. IMPRESSION: Cholelithiasis with gallbladder wall thickening, cholecystitis is not excluded. If indicated, hepatobiliary scan may be helpful. Calcification in the region of the bladder base/urethra of uncertain etiology. Reviewed, Interpreted and Dictated by Ralph López III, MD Transcribed by Niya Muro Authenticated and [facility]
--- NOTE | 2023-05-14 06:50 | CT_ITS ---
FINAL REPORT TECHNIQUE: Axial images of the neck soft tissue was performed with and without contrast by computed tomography. Sagittal and coronal reformatted images were obtained and reviewed. This study was performed with techniques to keep radiation doses as low as reasonably achievable (ALARA). Individualized dose reduction techniques using automated exposure control or adjustment of mA and/or kV according to the patient's size were employed. CLINICAL HISTORY: R/O MALIGNANCY, H/O LYMPHOMA FINDINGS: CT NECK SOFT TISSUE W & W/O CONTRAST There is a 5 mm right thyroid lobe nodule which is nonspecific. No mass or adenopathy is identified. The nasopharynx, oropharynx, hypopharynx, and larynx are unremarkable. IMPRESSION: Right thyroid lobe nodule. Consider follow-up ultrasound in 6 months. Reviewed, Interpreted and Dictated by Ralph López III, MD Transcribed by Niya Muro Authenticated and [facility]
== END ==
PROVIDERS: PCP Dermatology; Visit Provider Dermatology
DX: Z85.72 Personal history of non-Hodgkin lymphomas (principal)
CPT/HCPCS: 70470; 70492; 71270; 74178; Q9967

== ENCOUNTER → 2023-06-30 08:52 | Outpatient (CLI) | payer MEDICARE, OTHER, SELFPAY ==
--- NOTE | 2023-06-30 09:03 | XR_ITS ---
FINAL REPORT TECHNIQUE: Chest PA & Lateral CLINICAL HISTORY: HYPOTHYROIDISM soa , pneumonia , cough , congestion COMPARISON: 04/21/2020 FINDINGS: 2 views of the chest were performed. The heart size is normal. The mediastinum is within normal limits. There is no acute cardiopulmonary process. Mild chronic changes are noted in the lung kerns bilaterally. There are no pleural effusions. There is no pneumothorax. The bony thorax appears intact. IMPRESSION: No acute cardiopulmonary process. Reviewed, Interpreted and Dictated by Xiang Ayala MD Transcribed by Kristin Ashford Authenticated and [facility]
[2023-06-30 09:07] LABS: Basophils % 0.5 % (0.1-2.0); Eosinophils # 0.2 K/mm3 (0.0-0.4); Eosinophils % 1.8 % (0.1-12.0); Hematocrit 36.1 % (37.0-47.0); Hemoglobin 11.6 g/dL (12.2-16.2); Mean Corpuscular HGB Conc 32.1 g/dL (31.8-35.4); Mean Corpuscular Hemoglobin 29.9 pg (27.0-31.2); Mean Corpuscular Volume 93.1 fl (81-99); Monocytes # 0.8 K/mm3 (0.1-1.0); Monocytes % 9.8 % (1.7-9.3); Neutrophils # 6.3 K/mm3 (1.8-7.8); Platelet Count 241 K/mm3 (142-424); Red Blood Count 3.87 M/mm3 (4.20-5.40); Red Cell Distribution Width 15.8 % (11.5-17.5); White Blood Count 8.3 K/mm3 (4.8-10.8)
[2023-06-30 09:36] LABS: Chloride 107 mmol/L (98-107); Potassium 4.2 mmoL/L (3.5-5.1); Sodium 142 mmol/L (136-145)
[2023-06-30 09:39] LABS: Alanine Aminotransferase 21 U/L (12-78); Albumin/Globulin Ratio 1.4 (1.1-1.8); Alkaline Phosphatase 78 U/L (38-126); Anion Gap 15.2 mEq/L (5-15); Aspartate Amino Transferase 23 U/L (14-36); Bilirubin,Total 0.6 mg/dl (0.2-1.3); Blood Urea Nitrogen 30 mg/dl (7-17); Carbon Dioxide 24 mmol/L (22.0-30.0); Estimated Glomerular Filt Rate 36 ml/min (>60); GFR (African American) 43 ML/MIN (>60); Globulin 2.8 g/dL (1.3-3.2); Phosphorous 3.5 mg/dl (2.5-4.5); Total Protein,Serum 6.8 g/dl (6.3-8.2)
[2023-06-30 09:40] LABS: Calcium 9.5 mg/dl (8.4-10.2); Glucose 114 mg/dl (74-100)
== END ==
PROVIDERS: PCP Family Medicine; Visit Provider Family Medicine
DX: E03.9 Hypothyroidism, unspecified (principal); J18.9 Pneumonia, unspecified organism
CPT/HCPCS: 36415; 71046; 80053; 80069; 85025

== ENCOUNTER 2023-07-01 12:06 | Emergency (ER) | payer MEDICARE, OTHER, SELFPAY ==
[2023-07-01] VITALS (7 sets, daily range): BP systolic 127–143; BP diastolic 73–83; PULSE 78–85; RESP 16–19; TEMP 36.7–36.8; O2SAT 93–100; BMI 28.3; BMI 29.2
--- NOTE | 2023-07-01 12:03 | ECG_ITS ---
APPROVED REPORT Exam: Resting ECG HR:89 bpm ECG Measurements Heart Rate 89 AXES CA 171 P 56 QRSd 136 QRS -42 QT 363 T 0 QTc 410 Conclusion SINUS RHYTHM WITH OCCASIONAL SUPRAVENTRICULAR PREMATURE COMPLEXES LEFT AXIS DEVIATION [QRS AXIS < -30] RIGHT BUNDLE BRANCH BLOCK [120+ ms QRS DURATION, UPRIGHT V1, 40+ ms S IN I/aVL/V4/V5/V6] POSSIBLE ANTERIOR MYOCARDIAL INFARCTION , PROBABLY OLD [30 ms Q WAVE IN V3/V4, OR R < 0.2 mV IN V4] ABNORMAL ECG UNCONFIRMED REPORT Electronically signed by : Maico Pearson MD 07/01/2023 16:38:49
--- NOTE | 2023-07-01 12:12 | PC.NURSE ---
Dr. Pardo at [facility] for pt eval
--- NOTE | 2023-07-01 12:18 | XR_ITS ---
FINAL REPORT CLINICAL HISTORY: cough, soa COMPARISON: 06/30/2023 FINDINGS: TWO-VIEW CHEST The heart size is normal. The mediastinum is normal. The lungs are underinflated with chronic changes. There is no pneumothorax. IMPRESSION: No acute cardiopulmonary process. Reviewed, Interpreted and Dictated by Xiang Ayala MD Transcribed by Niya Muro Authenticated and [facility]
[2023-07-01 12:27] LABS: Basophils # 0.1 K/mm3 (0-0.2); Basophils % 0.7 % (0.1-2.0); Eosinophils # 0.1 K/mm3 (0.0-0.4); Eosinophils % 1.4 % (0.1-12.0); Lymphocytes % 14.8 % (10-50); Mean Corpuscular HGB Conc 32.4 g/dL (31.8-35.4); Mean Corpuscular Hemoglobin 30.4 pg (27.0-31.2); Mean Corpuscular Volume 93.8 fl (81-99); Mean Platelet Volume 9.3 fl (7.4-10.4); Monocytes # 0.7 K/mm3 (0.1-1.0); Monocytes % 10.4 % (1.7-9.3); Neutrophils # 4.7 K/mm3 (1.8-7.8); Neutrophils % 72.6 % (37.0-80.0); Platelet Count 253 K/mm3 (142-424); Red Blood Count 3.62 M/mm3 (4.20-5.40); Red Cell Distribution Width 16.1 % (11.5-17.5); White Blood Count 6.5 K/mm3 (4.8-10.8)
[2023-07-01 12:29] LABS: Chloride 107 mmol/L (98-107); Potassium 4.1 mmoL/L (3.5-5.1); Sodium 141 mmol/L (136-145)
[2023-07-01 12:31] LABS: Alanine Aminotransferase 21 U/L (12-78); Aspartate Amino Transferase 24 U/L (14-36); Blood Urea Nitrogen 33 mg/dl (7-17); Creatinine Clearance Estimated 41 mL/min (50-200); Estimated Glomerular Filt Rate 43 ml/min (>60); GFR (African American) 52 ML/MIN (>60)
[2023-07-01 12:32] LABS: Albumin Level 3.8 g/dl (3.5-5.0); Albumin/Globulin Ratio 1.2 (1.1-1.8); Alkaline Phosphatase 70 U/L (38-126); Anion Gap 14.1 mEq/L (5-15); Bilirubin,Total 0.7 mg/dl (0.2-1.3); Calcium 9.2 mg/dl (8.4-10.2); Carbon Dioxide 24 mmol/L (22.0-30.0); Globulin 3.1 g/dL (1.3-3.2); Glucose 106 mg/dl (74-100); Total Protein,Serum 6.9 g/dl (6.3-8.2)
[2023-07-01 12:42] LABS: NT Pro Brain Natriuretic Pep. 2990 pg/mL (0-450)
--- NOTE | 2023-07-01 12:47 | HMH.EDGENADL ---
Discharge Plan Disposition Patient Disposition: Home, Self-Care Condition: Good Prescriptions Prescriptions: New furosemide [Lasix] 20 mg tablet 20 mg PO DAILY PRN (Reason: edema and SOA) Qty: 30 0RF levofloxacin 750 mg tablet 750 mg PO DAILY 7 Days Qty: 7 0RF prednisone 50 mg tablet 50 mg PO DAILY 5 Days Qty: 5 0RF No Action losartan 50 mg tablet 50 mg PO DAILY clopidogrel 75 mg tablet 75 mg PO DAILY atorvastatin 20 mg tablet 20 mg PO DAILY metoclopramide HCl 5 mg tablet 5 mg PO DAILY Rx Instructions: administer 30 minutes before meals estradiol 0.05 mg/24 hr patch weekly 1 patch transdermal WEEKLY tramadol 50 mg tablet 50 mg PO Q6H PRN metoprolol succinate 50 mg tablet extended release 24 hr 50 mg PO DAILY lorazepam 0.5 mg tablet 0.5 mg PO DAILY PRN alendronate 70 MG tablet 70 mg PO WEEKLY cholecalciferol (vitamin D3) 25 mcg (1,000 unit) capsule 2,000 unit PO DAILY omeprazole 40 capsule,delayed release(DR/EC) 40 mg PO DAILY temazepam 30 capsule 30 mg PO HS levothyroxine 50 tablet 50 mcg PO DAILY potassium chloride 10 MEQ tablet,ER particles/crystals 10 meq PO DAILY ropinirole 1 MG tablet 1 mg PO HS Referrals Follow up/Referrals: Provider,Referral, MD [Primary Care Provider] - See instructions Activity Restrictions/Add. Instructions Additional Instructions/Restrictions: You were evaluated in the emergency department today. Please slat pickler your prescriptions. Complete full course of antibiotics and steroids as prescribed. Follow-up closely with your primary care provider, especially the provider prescribing you hydroxychloroquine. Use the Lasix as needed for shortness of breath when lying flat and edema. Return to the emergency department for any new or worsening symptoms. Clinical Impressions Clinical Impression: Dyspnea on exertion, Bronchitis, Acute exacerbation of CHF (congestive heart failure) Instructions Patient Instructions: DI for Heart Failure, DI for Acute Bronchitis Discharge ED Provider: Kiersten Pardo General Adult HPI General Chief complaint: Upper Respiratory Infection Stated complaint: CP Time Seen by Provider: 07/01/23 12:07 Mode of Arrival: Ambulatory Source of Information: Patient Limitations: No Limitations Description of Symptoms (Recalled from ER Triage Doc. by RN): Pt reports congestion x2 weeks, with persistent cough x2 weeks. Pt reports cough is non-productive in nature. Pt reports has had zpack with no improvement. Pt reports had chest xray and blood work yesterday as an outpt. History of Present Illness HPI narrative: This patient is an 83-year-old female with a history of restrictive lung disease, CHF, and asthma presenting to the emergency department for evaluation with concern for cough, chest tightness, and shortness of breath that have been ongoing for the past 2 weeks. She states that her cough is very dry. Her symptoms get worse with exertion. She was on a Z-Adrian, which she completed, but she had no improvement. She reports that she had a chest x-ray and blood work done yesterday as an outpatient but does not know the results yet. I independently reviewed prior records and saw that her chest x-ray did not demonstrate any acutely concerning abnormalities. She denies any fevers, chills, chest pain, abdominal pain, nausea, vomiting, changes in bowel movements, rashes, or swelling. Related Data Home Medications Medication Instructions Recorded Confirmed levothyroxine 50 mcg tablet 50 mcg PO DAILY THYROID 04/16/19 06/09/23 omeprazole 40 mg capsule,delayed 40 mg PO DAILY GERD 04/16/19 06/09/23 release potassium chloride 10 mEq 10 meq PO DAILY Supplement 04/16/19 06/09/23 tablet,extended release(part/cryst) ropinirole 1 mg tablet 1 mg PO HS Restless leg 04/16/19 06/09/23 temazepam 30 mg capsule 30 mg PO HS SLEEP 04/16/19 06/09/23 satinder
[2023-07-01 13:02] LABS: Troponin I < 0.01 ng/ml (0.00-0.034)
--- NOTE | 2023-07-01 13:04 | PC.NURSE ---
report given to abrilrn
--- NOTE | 2023-07-01 13:06 | PC.NURSE ---
To radiology via wheelchair
--- NOTE | 2023-07-01 13:08 | PC.NURSE ---
From radiology via wheelchair
--- NOTE | 2023-07-01 13:41 | PC.NURSE ---
rounded on pt nothing needed at this time,call light at bs
--- NOTE | 2023-07-01 14:01 | PC.NURSE ---
rounded on pt, updated on poc
== END 2023-07-01 15:04 | disposition home or self-care (01) ==
PROVIDERS: Emergency Provider Emergency Medicine
DX: J20.9 Acute bronchitis, unspecified (principal); R07.89 Other chest pain; R06.02 Shortness of breath; I11.0 Hypertensive heart disease with heart failure; I50.89 Other heart failure; I45.19 Other right bundle-branch block; M33.90 Dermatopolymyositis, unspecified, organ involvement unspecified
CPT/HCPCS: 71046; 80053; 83880; 84484; 85025; 93005; 96374; 96375; 99284

== ENCOUNTER → 2023-07-22 09:25 | Outpatient (CLI) | payer MEDICARE, OTHER, SELFPAY | PROVIDERS: PCP Family Medicine; Visit Provider Internal Medicine Pulmonary Disease | DX: R06.09 Other forms of dyspnea (principal) | CPT/HCPCS: 94060; 94618 ==

== ENCOUNTER 2023-11-21 09:19 | Emergency (ER) | payer MEDICARE, OTHER, SELFPAY ==
--- NOTE | 2023-11-21 09:44 | ED_ITS ---
Discharge Plan Disposition Patient Disposition: Home, Self-Care Condition: Good Prescriptions Prescriptions: New methylprednisolone 4 mg Tablets,Dose Pack 4 mg PO DIRECTED 6 Days Qty: 21 0RF Rx Instructions: Take 1 pack as directed for 6 days No Action losartan 50 mg tablet 50 mg PO DAILY clopidogrel 75 mg tablet 75 mg PO DAILY atorvastatin 20 mg tablet 20 mg PO DAILY metoclopramide HCl 5 mg tablet 5 mg PO DAILY Rx Instructions: administer 30 minutes before meals estradiol 0.05 mg/24 hr patch weekly 1 patch transdermal WEEKLY tramadol 50 mg tablet 50 mg PO Q6H PRN metoprolol succinate 50 mg tablet extended release 24 hr 50 mg PO DAILY lorazepam 0.5 mg tablet 0.5 mg PO DAILY PRN alendronate 70 MG tablet 70 mg PO WEEKLY cholecalciferol (vitamin D3) 25 mcg (1,000 unit) capsule 2,000 unit PO DAILY omeprazole 40 capsule,delayed release(DR/EC) 40 mg PO DAILY temazepam 30 capsule 30 mg PO HS levothyroxine 50 tablet 50 mcg PO DAILY potassium chloride 10 MEQ tablet,ER particles/crystals 10 meq PO DAILY ropinirole 1 MG tablet 1 mg PO HS furosemide [Lasix] 20 mg tablet 20 mg PO DAILY PRN (Reason: edema and SOA) Qty: 30 0RF levofloxacin 750 mg tablet 750 mg PO DAILY 7 Days Qty: 7 0RF prednisone 50 mg tablet 50 mg PO DAILY 5 Days Qty: 5 0RF Referrals Follow up/Referrals: Maico Pearson MD [Primary Care Provider] - See instructions Activity Restrictions/Add. Instructions Additional Instructions/Restrictions: Go home and rest. It would be best if you rested tomorrow too. No heavy lifting for the next several days. Don't start the oral steroids (medrol dose pack) until tomorrow, since you had the shots in here today. Follow up with your regular doctor. GO TO THE ER FOR ANY WORSENING SYMPTOMS OR CONCERN, ESPECIALLY BOWEL OR B LADDER ISSUES, SADDLE AREA NUMBNESS, FEVER, ETC Clinical Impressions Clinical Impression: Torticollis Instructions Patient Instructions: DI for Torticollis, Methylprednisolone, Methylprednisolone Injection Discharge ED Provider: Lior Fletcher [facility] General Stated complaint: stiff neck/pain gonzalez shoulder pain Time Seen by Provider: 11/21/23 09:44 History of Present Illness Provider Complaint: She states that for the past 4 days she has had right sided posterior neck pain and right shoulder pain. Her symptoms are worse when she turns her head and moves her right shoulder. She denies any headache, weakness, and chest pain. She states that her neck pain began when she woke up one morning. She states that she felt like she had slept wrong and that it would get better, but it has not got better. Related Data Home Medications Medication Instructions Recorded Confirmed levothyroxine 50 mcg tablet 50 mcg PO DAILY THYROID 04/16/19 06/09/23 omeprazole 40 mg capsule,delayed 40 mg PO DAILY GERD 04/16/19 06/09/23 release potassium chloride 10 mEq 10 meq PO DAILY Supplement 04/16/19 06/09/23 tablet,extended release(part/cryst) ropinirole 1 mg tablet 1 mg PO HS Restless leg 04/16/19 06/09/23 temazepam 30 mg capsule 30 mg PO HS SLEEP 04/16/19 06/09/23 alendronate 70 mg tablet 70 mg PO WEEKLY Bone loss 05/21/19 06/09/23 atorvastatin 20 mg tablet 20 mg PO DAILY 06/09/23 06/09/23 cholecalciferol (vitamin D3) 25 2,000 unit PO DAILY Diet supplement 06/09/23 06/09/23 mcg (1,000 unit) capsule clopidogrel 75 mg tablet 75 mg PO DAILY 06/09/23 06/09/23 estradiol 0.05 mg/24 hr weekly 1 patch transdermal WEEKLY 06/09/23 06/09/23 transdermal patch lorazepam 0.5 mg tablet 0.5 mg PO DAILY PRN 06/09/23 06/09/23 losartan 50 mg tablet 50 mg PO DAILY 06/09/23 06/09/23 metoclopramide HCl 5 mg tablet 5 mg PO DAILY 06/09/23 06/09/23 metoprolol succinate 50 mg 50 mg PO DAILY 06/09/23 06/09/23 tablet,extended release 24 hr tramadol 50 mg tablet 50 mg PO Q6H PRN 06/09/23 06/09/23 Previous Rx's Medication Instructions Recorded furosemide 20 mg tablet (Lasix) 20 mg PO DAILY PRN edema and SOA 07/01/23 #30 tabs levofloxacin 750 mg tablet 750 mg PO DAILY 7 days #7 tabs 07/01/23 prednisone 50 mg tablet 50 mg PO DAILY 5 days #5 tabs 07/01/23 methylprednisolone 4 mg tablets in 4 mg PO DIRECTED 6 days #21 tabs 11/21/23 a dose pack Allergies Allergy/AdvReac Type Severity Reaction Status Date / Time adhesive Allergy Intermediate I-RASH Verified 11/21/23 09:55 iodine Allergy Intermediate I-RASH Verified 11/21/23 09:55 Penicillins Allergy Intermediate I-RASH Verified 11/21/23 09:55 [facility] Disclaimer: The information contained in this section may have been updated after the patient was seen, as this information can be updated by other users. Medical History Dermatomyositis Dyspnea on exertion ILD (interstitial lung disease) Restrictive lung disease Surgical History History of appendectomy History of bladder surgery History of heart artery stent History of hysterectomy History of lumbar surgery History of stem cell transplant Family History Other Asthma Cancer Diabetes Social History Smoking Status: Never smoker second hand exposure: No alcohol intake: never current occupational status: retired Travel in the last 8 weeks: None household members: spouse housing: house caffeine: Yes ROS Obtained: Yes All systems reviewed & no additional complaints except as documented Constitutional Constitutional: Denies chills, Denies fever(s), Denies headache(s) and Denies weakness Eyes Eyes: Denies eye discharge and Denies loss of vision ENT Ears, Nose, Mouth, and Throat: Denies disequilibrium, Denies dizziness, Denies otalgia, Denies headache(s), Reports neck pain and Denies sore throat Cardiovascular Cardiovascular: Denies chest pain and Denies syncope Respiratory Respiratory: Denies shortness of breath, Denies chest congestion, Denies cough, Denies stridor and Denies wheezing Gastrointestinal Gastrointestingal: Denies nausea or vomiting Musculoskeletal Musculoskeletal: Reports as per HPI and Reports neck pain Integumentary/Breasts Skin/Breast: Denies rash Neurologic Neurologic: Reports as per HPI, Denies confusion, Denies disequilibrium, Denies dizziness, Denies focal weakness, Denies headache(s), Denies lack of coordination, Denies loss of vision, Denies memory loss, Denies paresthesias, Reports radicular pain, Denies syncope and Denies weakness Allergic/Immunologic Allergic/Immunologic: Denies wheezing Physical Exam General General appearance: alert and in no apparent distress Head Head exam: atraumatic, normocephalic and normal inspection Eye Eye exam: Present normal appearance, PERRL and EOMI ENT ENT exam: Present normal exam, normal oropharynx, mucous membranes moist, TM's normal bilaterally and normal external ear exam Neck Neck exam: Present normal inspection, full ROM and trachea midline; Absent meni ngismus or lymphadenopathy Chest Chest inspection: Present normal inspection and symmetric chest wall rise; Absent tenderness Respiratory Respiratory exam: Present normal lung sounds bilaterally; Absent respiratory distress Cardiovascular Cardiovascular exam: Present regular rate and normal rhythm; Absent JVD Abdominal Exam Abdominal exam: Present soft and normal bowel sounds; Absent distention, tende rness or guarding Extremities Exam Extremities exam: Present normal capillary refill; Absent calf tenderness Expanded Upper Extremity Exam Right: Shoulder exam: Present full ROM and tenderness; Absent swelling, abrasion, laceration, ecchymosis, deformity, crepitus, dislocation, erythema or tenderness over AC joint Arm exam: Present normal inspection and full ROM; Absent tenderness Elbow exam: Present normal inspection and full ROM; Absent tenderness Forearm/Wrist exam: Present normal inspection and full ROM; Absent tenderness Hand exam: Present normal inspection and full ROM; Absent tenderness Neuromotor exam: Normal wrist extension, thumb opposition, thumb IP flex ion, thumb adduction and fingers 2-5 abduction Neurosensory exam: Normal radial nerve and ulnar nerve Vascular exam: Normal capillary refill, radial pulse and ulnar pulse Back Exam Back exam: Present normal inspection; Absent tenderness Neurological Exam Neurological exam: Present alert, oriented X3, CN II-XII intact, normal gait and reflexes normal; Absent motor sensory deficit Expanded Neurological Exam Speech: Present fluid speech Cranial nerves: Normal: EOM function (II, III, IV, ), facial sensation (V), facial palsy (VII), gag reflex (IX), spinal accessory function (XI) and tongue deviation (XII) Cerebellar function: normal gait Motor strength - LUE: 5/5 Motor strength - RUE: 5/5 Motor strength - LLE: 5/5 Motor strength - RLE: 5/5 Sensory exam upper extremity: Normal: light touch and 2 point discrimination Sensory exam lower extremity: Normal: light touch and 2 point discrimination DTR: 2+: biceps (L), biceps (R), patellar (L), patellar (R), Achilles tendon (L) and Achilles tendon (R) Spinal cord function: Absent saddle anesthesia Psychiatric Psychiatric exam: Present normal affect and normal mood Skin Skin exam: Present warm, dry, intact and normal color Lymphatic Lymphatic Findings: no adenopathy Medical Decision Making Medical Records Medical records reviewed: No I reviewed the patient's medical records. [place] Inquiry Pt receiving controlled substance: No
[2023-11-21 09:45] VITALS: PULSE 115; RESP 18; TEMP 36.6; O2SAT 98; BMI 25.0
[2023-11-21] MEDS: METHYLPREDNISOLONE SOD SUCC 125MG VIAL 125 MG IM (10:15)
[2023-11-21 10:30] VITALS: BP 154/86; PULSE 115; RESP 18; TEMP 36.6; O2SAT 98
== END 2023-11-21 10:30 | disposition home or self-care (01) ==
PROVIDERS: Emergency Provider Nurse Practitioner Family; PCP Internal Medicine Adolescent Medicine
DX: M43.6 Torticollis (principal); M54.2 Cervicalgia; M25.511 Pain in right shoulder; J84.9 Interstitial pulmonary disease, unspecified
CPT/HCPCS: 96372; 99204; 99212; G0463

== ENCOUNTER 2023-12-14 08:42 | Outpatient (CLI) | payer MEDICARE, SELFPAY ==
--- NOTE | 2023-12-14 08:46 | XR_ITS ---
FINAL REPORT CLINICAL HISTORY: OSTEOPOROSIS FINDINGS: Using distal one third, the bone mineral density of the right forearm is 0.508 g/cm2, corresponding to T-score of -3.1 which is within the osteoporotic range. Using the left hip, the bone mineral density of the femoral neck is 0.638 g/cm2, corresponding to a T-score of -1.9 which is within the low density range. Using the right hip: The bone mineral density of the femoral neck is 0.638 g/cm2, corresponding to a T-score of -1.9 which is within the low density range. IMPRESSION: Osteoporosis of the distal one third of the right forearm. Low bone density in the bilateral femoral necks. NOTE: T-score: Standard deviation compared with peak bone mass of young adult mean. *Following the recommendations of the International Society of Bone densitometry, classification of hip BMD is based on the lower of two T-scores; total hip or femoral neck. Reviewed, Interpreted and Dictated by Ralph López III, MD Transcribed by Radha Riojas Authenticated and . [facility]
== END 2023-12-14 23:59 ==
LOC: RAD 08:42
PROVIDERS: PCP Internal Medicine Adolescent Medicine; Visit Provider Internal Medicine Adolescent Medicine
DX: M81.0 Age-related osteoporosis without current pathological fracture (principal)
CPT/HCPCS: 77080

== ENCOUNTER 2023-12-15 11:59 | Outpatient (CLI) | payer MEDICARE, SELFPAY ==
--- NOTE | 2023-12-15 12:13 | XR_ITS ---
FINAL REPORT CLINICAL HISTORY: CERVICAL PAIN FINDINGS: CERVICAL SPINE Six views demonstrate no acute fracture. There are moderate degenerative changes with multilevel osteophytes. Mild multilevel neural foraminal narrowing is identified on the right at C6-7 and on the left at C4-5 and C5-6. There is no malalignment. IMPRESSION: Multilevel degenerative changes with neural foraminal narrowing. Reviewed, Interpreted and Dictated by Ralph López III, MD Transcribed by Niya Muro Authenticated and [facility]
== END 2023-12-15 23:59 ==
LOC: RAD 12:00
PROVIDERS: PCP Internal Medicine Adolescent Medicine; Visit Provider Internal Medicine Adolescent Medicine
DX: M54.2 Cervicalgia (principal)
CPT/HCPCS: 72050

== ENCOUNTER 2023-12-31 10:15 | Outpatient (POV) | payer MEDICARE, SELFPAY ==
--- NOTE | 2023-12-31 10:24 | A.OFFVIS_ITS ---
HPI Data of Consult Patient: new to practice Consult date: 12/31/23 Requesting Physician: Kiersten Mckay APRN Primary Care Provider: Maico Pearson MD Consult Narrative Reason for consult: Neck pain, headache History of present illness: Ms. Ponce is a 83 year old female who presents today as a new patient. S he is a referral from Dr. Pearson's office. Today she rates her pain a 8 out of 10. Patient states her pain is all in and around her neck with some radiating symptoms into her right shoulder and increased headaches. Patient states this has been going on for the last couple of months unrelated to any specific trauma or injury. Patient does describe it as a throbbing sensation that is worse with increased movement such as bending or twisting. Patient states she has tried [id number] Tylenol and and topicals with minimal relief. She does state that the heat helps however it is only temporary and that she is prescribed tramadol and it helps. Patient is currently in physical therapy however has not noticed any additional improvement. Patient states that she does have a history of low back issues and has had fusion. she is prescribed temazepam 15 mg daily about 50 mg on her primary care provider. Her Guicho has been reviewed and is appropriate. CC: Kiersten Mckay APRN [facility] Disclaimer: The information contained in this section may have been updated after the patient was seen, as this information can be updated by other users. Medical History Dermatomyositis Dyspnea on exertion ILD (interstitial lung disease) Restrictive lung disease Surgical History History of appendectomy History of bladder surgery History of heart artery stent History of hysterectomy History of lumbar surgery History of stem cell transplant Family History Other Asthma Cancer Diabetes Social History Smoking Status: Never smoker second hand exposure: No alcohol intake: never current occupational status: retired Travel in the last 8 weeks: None household members: spouse housing: house caffeine: Yes Review of Systems Review of Systems Review of systems:: pertinent systems reviewed and negative unless documented below Review of systems (narrative): Review of Systems: General: No recent weight changes, no fever, no sleep disturbances Respiratory: No cough, no shortness of air, no recurring pulmonary infections Cardiovascular/peripheral vascular: No chest pain, no palpitations, no edema, no shortness of breath Gastrointestinal: No new onset incontinence, normal bowel movements reported Genitourinary: No new onset incontinence Musculoskeletal: Neck pain Psychiatric: [Normal mood/affect] Neurological: [Denies weakness in extremities], [denies balance issues] Meds Home Medications and Allergies Home Medications Medication Instructions Recorded Confirmed Type levothyroxine 50 mcg tablet 50 mcg PO DAILY THYROID 04/16/19 06/09/23 History omeprazole 40 mg capsule,delayed 40 mg PO DAILY GERD 04/16/19 06/09/23 History release potassium chloride 10 mEq 10 meq PO DAILY Supplement 04/16/19 06/09/23 History tablet,extended release(part/cryst) ropinirole 1 mg tablet 1 mg PO HS Restless leg 04/16/19 06/09/23 History temazepam 30 mg capsule 30 mg PO HS SLEEP 04/16/19 06/09/23 History alendronate 70 mg tablet 70 mg PO WEEKLY Bone loss 05/21/19 06/09/23 History atorvastatin 20 mg tablet 20 mg PO DAILY 06/09/23 06/09/23 History cholecalciferol (vitamin D3) 25 2,000 unit PO DAILY Diet supplement 06/09/23 06/09/23 History mcg (1,000 unit) capsule clopidogrel 75 mg tablet 75 mg PO DAILY 06/09/23 06/09/23 History estradiol 0.05 mg/24 hr weekly 1 patch transdermal WEEKLY 06/09/23 06/09/23 History transdermal patch lorazepam 0.5 mg tablet 0.5 mg PO DAILY PRN 06/09/23 06/09/23 History losartan 50 mg tablet 50 mg PO DAILY 06/09/23 06/09/23 History metoclopramide HCl 5 mg tablet 5 mg PO DAILY 06/09/23 06/09/23 History metoprolol succinate 50 mg 50 mg PO DAILY 06/09/23 06/09/23 History tablet,extended release 24 hr tramadol 50 mg tablet 50 mg PO Q6H PRN 06/09/23 06/09/23 History furosemide 20 mg tablet (Lasix) 20 mg PO DAILY PRN edema and SOA 07/01/23 Rx #30 tabs levofloxacin 750 mg tablet 750 mg PO DAILY 7 days #7 tabs 07/01/23 Rx prednisone 50 mg tablet 50 mg PO DAILY 5 days #5 tabs 07/01/23 Rx methylprednisolone 4 mg tablets in 4 mg PO DIRECTED 6 days #21 tabs 11/21/23 Rx a dose pack New Prescriptions to Start Prescriptions: Allergies Allergy/AdvReac Type Severity Reaction Status Date / Time adhesive Allergy Intermediate I-RASH Verified 11/21/23 09:55 iodine Allergy Intermediate I-RASH Verified 11/21/23 09:55 Penicillins Allergy Intermediate I-RASH Verified 11/21/23 09:55 Objective Narrative: Physical Exam: General: Alert and oriented x3, no acute distress, pleasant and cooperative Lungs: Respirations even and unlabored, symmetrical chest expansion Eyes: PERRL Musculoskeletal: Flexion and extension of cervical [spine] somewhat guarded secondary to pain, [antalgic gait noted] positive Kemps test, point tenderness along right trapezius muscles Neurological: Speech clear, no gross sensory deficit Additional findings Additional findings: FINDINGS: CERVICAL SPINE Six views demonstrate no acute fracture. There are moderate degenerative changes with multilevel osteophytes. Mild multilevel neural foraminal narrowing is identified on the right at C6-7 and on the left at C4-5 and C5-6. There is no malalignment. IMPRESSION: Multilevel degenerative changes with neural foraminal narrowing. Reviewed, Interpreted and Dictated by Ralph López III, MD Transcribed by Niya Muro Authenticated and [facility] CT cervical spine from [facility] [place] 12/22/2023 Findings: No fracture. Moderate to severe multilevel degenerative changes. There is significant disc space narrowing at C3-4, C4-5, C5-6 and C6-7. There is retrolisthesis of C5 3 on 4 and C4 on C5 5. Uncovertebral joints are normally aligned. There is a 6 mm calcification posterior to the left thyroid gland. The prevertebral soft tissues are otherwise normal. Limited images of the lung apices are unremarkable. Assessment and Plan *Assessment and plan (1) Degenerative disc disease, cervical: Status: Acute Category: Medical Code(s): M50.30 - Other cervical disc degeneration, unspecified cervical region (2) Cervical spondylosis: Status: Acute Category: Medical Code(s): M47.812 - Spondylosis without myelopathy or radiculopathy, cervical region (3) Neck pain: Status: Acute Category: Medical Code(s): M54.2 - Cervicalgia (4) Myofascial pain: Status: Acute Category: Medical Code(s): M79.18 - Myalgia, other site Plan Patient is experiencing worsening pain in her neck without positive Kemps test and limited range of motion of her cervical spine. I have discussed with the patient that she may benefit from a cervical medial branch block. Risk and benefits were discussed with the patient however at this time she would like to wait. I will order the patient a compounded cream. I have counseled the p atient that she can call and schedule this injection over the phone if she decides to between now and her next follow-up. Patient did also have point tenderness along her right trapezius muscles and I have counseled the patient in future she may benefit from trigger point injections at this location. Patient will return to clinic in 2 weeks for reevaluation of symptoms and plan of care. Patient has been instructed to contact the clinic with any concerns before the next appointment. Dr. Schmitt has reviewed this note and agrees with this plan of care. This note was dictated using voice recognition software and make contain errors or omissions.
[2023-12-31 11:16] VITALS: BP 127/74; PULSE 92; RESP 18; O2SAT 94; BMI 25.0
== END 2023-12-31 23:59 ==
PROVIDERS: PCP Internal Medicine Adolescent Medicine; Visit Provider Nurse Practitioner Family
DX: M50.30 Other cervical disc degeneration, unspecified cervical region (principal); M47.812 Spondylosis without myelopathy or radiculopathy, cervical region; M79.18 Myalgia, other site
CPT/HCPCS: 99202; G0463

== ENCOUNTER → 2024-01-13 09:32 | Outpatient (POV) | payer MEDICARE, SELFPAY ==
[2024-01-13 09:30] VITALS: BP 125/66; PULSE 103; RESP 20; BMI 24.2
--- NOTE | 2024-01-13 10:10 | A.OFFVIS_ITS ---
[facility] Pain Management SOAP Note Subjective:: Patient is a pleasant 83-year-old female who presents today for 2-week follow- up. We are currently treating the patient for degenerative disc disease of cervical spine with cervical spondylosis, myofascial pain. Today she rates her pain at 8 out of 10. Patient denies any new trauma or injury. She states she continues to have significant pain in her neck that is worse with certain movements such as bending, twisting. She states that she does even have tenderness in and around her neck. She states the pain is constant and describes it as an aching, throbbing sensation. Patient states the pain does interfere with her ability perform activities of daily living such as cooking and cleaning. At our last visit she was prescribed compounded cream however she states that she did not notice significant relief. Patient states that she is interested in injection therapy. Patient is on temazepam from an outside provider. Her Guicho has been reviewed and is appropriate. Review of Systems: General: No recent weight changes, no fever, no sleep disturbances Respiratory: No cough, no shortness of air, no recurring pulmonary infections Cardiovascular/peripheral vascular: No chest pain, no palpitations, no edema, no shortness of breath Gastrointestinal: No new onset incontinence, normal bowel movements reported Genitourinary: No new onset incontinence Musculoskeletal: Neck pain Psychiatric: [Normal mood/affect] Neurological: [Denies weakness in extremities], [denies balance issues] Objective:: Physical Exam: General: Alert and oriented x3, no acute distress, pleasant and cooperative Lungs: Respirations even and unlabored, symmetrical chest expansion Eyes: PERRL Musculoskeletal: Flexion and extension of cervical [spine] somewhat guarded secondary to pain, [antalgic gait noted] positive Kemps test Neurological: Speech clear, no gross sensory deficit Assessment:: DosesDegenerative disc disease of cervical spine with cervical spondylosis, myofascial pain Plan:: Patient is experiencing worsening pain in her neck with limited range of motion and positive Kemps test. I had discussed over the risk and benefits of the cervical medial branch block. Patient states she would like to proceed forward with this plan of care. Patient is on Plavix that she states she believes is written by her physician credentialing specialist at [facility]. We will reach out to this office and confirm that she can stop this medication prior to this injection. Patient has tried and failed conservative therapy such as oral medication, heat and ice, topicals, recent physical therapy and continued at home exercise and stretching. I will send in a prescription of baclofen 5 mg twice daily and provide a 2-week supply of this medication. Patient will be scheduled for a cervical medial branch block bilaterally C5-C6 and C6-C7. I have discussed with patient if she has significant relief we will plan on repeating this injection with the plan on doing a cervical RFA at a later date. This injection will be done under fluoroscopic guidance. Patient has been instructed to contact the clinic with any concerns before the next appointment. Dr. Schmitt has reviewed this note and agrees with this plan of care. This note was dictated using voice recognition software and make contain errors or omissions. [facility] Disclaimer: The information contained in this section may have been updated after the patient was seen, as this information can be updated by other users. Medical History Dermatomyositis Dyspnea on exertion ILD (interstitial lung disease) Restrictive lung disease Surgical History History of appendectomy History of bladder surgery History of heart artery stent History of hysterectomy History of lumbar surgery History of stem cell transplant Family History Other Asthma Cancer Diabetes Social History (Updated 12/31/23 @ 11:17 by Jenae Awad RN) Smoking Status: Never smoker second hand exposure: No alcohol intake: never current occupational status: other Travel in the last 8 weeks: None household members: spouse housing: house caffeine: Yes
== END | disposition home or self-care (01) ==
PROVIDERS: PCP Internal Medicine Adolescent Medicine; Visit Provider Nurse Practitioner Family
DX: M50.123 Cervical disc disorder at C6-C7 level with radiculopathy (principal); M47.22 Other spondylosis with radiculopathy, cervical region; M79.10 Myalgia, unspecified site
CPT/HCPCS: 99212; G0463

== ENCOUNTER 2024-09-12 13:07 | Outpatient (CLI) | payer MEDICARE, SELFPAY ==
--- NOTE | 2024-09-12 13:11 | XR_ITS ---
FINAL REPORT CLINICAL HISTORY: rt hand pain COMPARISON: None FINDINGS: RIGHT HAND: 3 views of the right hand were obtained. There is no acute fracture or dislocation. Mild and moderate degenerative change is present, as well as osteopenia. Visualized joint spaces are normally aligned. Soft tissues are unremarkable. IMPRESSION: Mild and moderate degenerative changes present without acute bony abnormality. Osteopenia. Authenticated and [facility]
== END 2024-09-12 23:59 | disposition home or self-care (01) ==
LOC: RAD 13:08
PROVIDERS: PCP Internal Medicine Adolescent Medicine; Visit Provider Orthopaedic Surgery
DX: M65.351 Trigger finger, right little finger (principal)
CPT/HCPCS: 73130

== ENCOUNTER 2025-08-11 11:07 | Outpatient (CLI) | payer MEDICARE, SELFPAY ==
--- OUTSIDE RECORDS SUMMARY | 2020-05-06 19:45 | XMS_ITS | Encounter Summary ---
Author Organization [facility] Address [address] [place] [address] Care Team Providers Care [employer] Safety Program Coordinator Name Role Phone Melvin Lang MD Primary Care Provider [phone] Reason for Referral * Hospital - Outpatient (Routine) - Closed Specialty Diagnoses / Procedures Referred By David mcginnis Referred To Contact Sleep Medicine Diagnoses NYDIA (obstructive sleep apnea) Procedures Polysomnography 4 or More Parameters April Thrasher APRN [address] [place] [address] Phone: tel: fax: [facility] [address] [address] Phone: tel: fax: Referral ID Status Reason Start Date Expiration Date Visits Re quested Visits Authorized [id number] Closed 04/17/2020 04/17/2021 1 1 Reason for Visit * Hospital - Outpatient (Routine) - Closed Specialty Diagnoses / Procedures Referred By David mcginnis Referred To Contact Sleep Medicine Diagnoses NYDIA (obstructive sleep apnea) Procedures Polysomnography 4 or More Parameters April Thrasher APRN [address] [place] [address] Phone: tel: fax: [facility] [address] [address] Phone: tel: fax: Referral ID Status Reason Start Date Expiration Date Visits Re quested Visits Authorized [id number] Closed 04/17/2020 04/17/2021 1 1 Encounter Details Date Type Department Care Team (Late st Contact Info) Description 05/06/2020 7:45 PM EDT Hospital Encounter [facility] [address] [place] [phone] April Thrasher, NURSE NAVIGATOR [address] [place] [address] NYDIA (obstructive sleep apnea) Social History Tobacco [...] Description 05/13/2026 4:00 PM EDT Office Visit [facility] [address] [place] [address] Jessee Sutton MD [address] [place] [address] documented as of this encounter Procedures Procedure [...] was noted to be present by the patient services technician in attendance. D) Oxygen saturation: Oxygen [...] documented as of this encounter Care Teams [employer] Safety Program Coordinator Relationship Specialty Start Date End Date Melvin Lang MD [address] [place] [address] PCP - General 01/03/16 09/01/23 documented as of this encounter
--- OUTSIDE RECORDS SUMMARY | 2025-08-11 11:12 | XMS_ITS | Clinical Summary ---
Author Organization [facility] Address [address] [place] [address] Care Team Providers Care Oracle Manufacturing Consultant Name Role Phone Melvin Lang MD Primary Care Provider [phone] Medications Entresto 24-26 MG tablet 04/27/2024 Active atorvastatin (Lipitor) 20 MG tablet 08/25/2024 Active clopidogrel (Plavix) 75 MG tablet 09/25/2024 Active potassium chloride ER (Micro-K) 10 MEQ ER capsule 03/10/2024 Acti ve metoprolol succinate XL (Toprol-XL) 50 MG 24 hr tablet 07/12/2024 Act hay cholecalciferol (Vitamin D-3) 125 MCG (5000 UT) capsule Take 1 capsule (5,000 Units) by mouth 1 (one) time each day. Active hydroxychloroqu ine (Plaquenil) 200 MG tablet 09/25/2024 Activ e omeprazole (PriLOSEC) [address] capsule Take 1 capsule (40 mg) by mouth 1 (one) time each day. 11/29/2017 Active rOPINIRole (Requip) 1 MG tablet Take 3 tablets (3 mg) by mouth 1 (one) time each day. 07/21/2017 Active eszopiclone (Lunesta) 2 MG tablet 09/22/2024 Active hydrOXYzine pamoate (Vistaril) 25 MG capsule Take 1 capsule (25 mg) by mouth 3 (three) times a day if needed for itching. Active Social History Tobacco Use Types Packs/Day Years Used Date Smoking Tobacco: Never Alcohol Use Standard Drinks/Week Comments No 0 (1 standard drink = 0.6 oz pure alcohol) Alcoholic Drinks/day: Never Drank Alcohol Comments Unknown Sex and Gender Information Value Date Recorded Sex Assigned at Not on file Legal Sex Female 8:26 PM EDT Gender Identity Not on file Sexual Orientation Not on file Last Filed Vital Signs Vital Sign Reading Time Taken Comments Blood Pressure 127/76 10/09/2024 2:53 PM EST Pulse 89 10/09/2024 2:53 PM EST Temperature 36 C (96.8 F) 10/09/2024 2:53 PM EST Respiratory Rate - - Oxygen Saturation 91% 10/09/2024 2:53 PM EST Inhaled Oxygen Concentration - - Weight 68.9 kg (152 lb) 10/09/2024 2:53 PM EST Height 165.1 cm (5' 5 ) 10/09/2024 2:53 PM EST Body Mass Index 25.29 10/09/2024 2:53 PM EST Plan of Treatment Health Maintenance Due Date Last Done Comments UKY-Bone Density Scan 1940 UKY-Depression Screening 1940 UKY-Medicare Annual Wellness (AWV) 1940 [facility]Y-Infant/Child/Adol SDOH Screenings 1940 UKY- SDOH Screenings 1958 UKY-Adult SDOH Screenings 1958 UKY-DTaP,Tdap,and Td Vaccines (1 - Tdap) 1959 UKY-Pneumococcal Vaccine: 50+ Years (1 of 1 - PCV) 1990 [id number] Vaccine ( season) 2025 05/14/2022, 08/04/2021, 01/07/2021, Additional history exists UKY-Influenza Vaccine (#1) 07/09/202507/19, 08/18/2023, 08/02/2020, Additional history exists UKY-RSV Vaccine: 60+ Years or Completed 10/13/2023 UKY-Zoster Vaccines Completed 04/24/2024, [facility]Y-Obesity Intervention Completed 10/09/2024 HPV Vaccines Aged Out No longer eligi ble based on patient's age to complete this topic UKY-HIB Vaccines Aged Out No longer e ligible based on patient's age to complete this topic UKY-Hepatitis A Vaccines Aged Out No longer eligible based on patient's age to complete this topic UKY-IPV Vaccines Aged Out No longer e ligible based on patient's age to complete this topic UKY-Rotavirus Vaccines Aged Out No lo nger eligible based on patient's age to complete this topic Insurance MEDICARE AETNA Care Teams Oracle Manufacturing Consultant Relationship Specialty Start Date End Date Melvin Lang MD [address] [place] [address] [address]1 [address] [place] [address] PCP - General 03/21/21
--- OUTSIDE RECORDS SUMMARY | 2025-08-11 11:12 | XMS_ITS | Encounter Summary ---
Author Organization [facility] Address [address] [place] [address] Care Team Providers Care Single Spindle Screw Machine Operator Name Role Phone Maico Pearson MD Primary Care Provider [phone] Reason for Visit * Reason Onset Date Comments Med Refill 07/31/2025 Encounter Details Date Type Department Care Team (Late st Contact Info) Description 07/31/2025 Refill [facility] [address] [facility] [address] [place] [phone] Jessee Sutton MD [address] [facility] [address] [place] [address] Med Refill Social History Tobacco Use Types Packs/Day Years [...] on file documented as of this encounter Miscellaneous Notes * Telephone Encounter - Елена Wilson RN - 07/31/2025 1:42 PM EDT Received fax request from [facility] for refill of farxiga. documented in this encounter Plan of Treatment Upcoming Encounters Date Type Department Care Team (Late st Contact Info) Description 05/13/2026 4:00 PM EDT Office Visit [facility] [address] [facility] [address] [phone] Jessee Sutton MD [address] [facility] [address] [id number] documented as of this encounter Visit Diagnoses Not on filedocumented in this encounter Care Teams Single Spindle Screw Machine Operator Relationship Specialty Start Date End Date Maico Pearson MD [address] [facility] [address] [place] [address] PCP - General Adolescent Medicine 09/02/23 documented as of this encounter
--- OUTSIDE RECORDS SUMMARY | 2025-08-11 11:12 | XMS_ITS | Clinical Summary ---
Author Organization [facility] Address [address] [place] [address] Care Team Providers Care Electrical And Radio Mechanic Name Role Phone Maico Pearson MD Primary Care Provider [phone] Allergies Active Allergy Reactions Criticality Noted Date Comments Adhesive Tape Rash Low 03/20/2020 All except for paper tape for extended period of time Iodinated Contrast Media Hives 03/20/2020 Penicillins Hives 03/20/2020 Medications potassium chloride (K-DUR,KLOR-CON) 10 MEQ CR tablet Take 1 tablet by mouth 2 (Two) Times a Day. Active omeprazole (priLOSEC) 40 MG capsule Take 1 capsule by mouth Daily. Active rOPINIRole (REQUIP) 1 MG tablet Take 3 tablets by mouth Every Night. Take 1 hour before bedtime. Active O2 (OXYGEN) Inhale 2 L/min Every Night. Active hydroxychloroquin e (PLAQUENIL) 200 MG tablet Take 1 tablet by mouth Daily. 3 Active metoprolol succinate XL (TOPROL-XL) 50 MG 24 hr tablet Take 1 tablet by mouth Daily. 90 tablet 3 4 Active eszopiclone (LUNESTA) 2 MG tablet Take 1 tablet by mouth Every Night. 4 Active aspirin 81 MG EC tabletIndications :Cramp in lower leg,PVD (peripheral vascular disease) with claudication,Nonr heumatic mitral valve regurgitation Take 1 tablet by mouth Daily. 90 tablet 3 4 Active sacubitril-valsar menon (Entresto) 24-26 MG tablet TAKE 1 TABLET BY MOUTH TWICE DAILY 60 tablet 3 5 Active traMADol (ULTRAM) 50 MG tablet Take 1 tablet by mouth As Needed for Moderate Pain. Active Synthroid 50 MCG tablet Take 1 tablet by mouth Every Morning. 5 Active Cholecalciferol (Vitamin D3) 50 MCG (1999) capsule Take 1 capsule by mouth Daily. Active dapagliflozin (Farxiga) 5 MG tablet tablet Take 1 tablet by mouth Daily. 90 tablet 3 5 Active dapagliflozin (Farxiga) 5 MG tablet tablet Take 1 tablet by mouth Daily. 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 GERD 03/28/2020 NYDIA (obstructive sleep apnea) 03/28/2020 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 S/P AV sosa ablation 03/20/2020 Essential hypertension 03/20/2020 Constipation 06/15/2018 Cramp in lower leg 06/15/2018 Resolved Problems Problem Noted Date Diagnosed Date Resolved Date Bradycardia 06/18/2020 06/21/2020 UTI due to Klebsiella species 06/18/2020 06/21/2020 Encounters Date Type Department Care Team Description 07/31/2025 Refill [facility] [address] [phone] Jessee Sutton MD Med Refill from Last 3 Months Immunizations Immunization Administration Dates Next Due COVID-19 (PFIZER) Purple Cap Monovalent 08/04/20,01/07/2021,12/13/2020 Covid-19 (Pfizer) Keene Cap Monovalent 05/14/2022 Fluzone High-Dose 65+YRS 07/28/2016 Influenza, Unspecified 08/02/2020 Family History Medical History Relation Name Comments Asthma Brother 1 Jose Brain cancer Brother 1 Jose Diabetes Brother 2 Seizures Brother 3 Heart attack Father Dillan Heart disease Father Dillan Diabetes Mother Diabetes Other Heart attack Other Heart disease Other Relation Name Status Comments Brother 1 Jose Brother 2 Brother 3 Father Dillan Mother Other Social History Tobacco Use Types Packs/Day Years Used Date Smoking Tobacco: Never Passive Smoke Exposure: Never Smokeless Tobacco: Never Tobacco Cessation:Counseling Given: Not Answered Alcohol Use Standard Drinks/Week Comments Never 0 [...] Sign Reading Time Taken Comments Blood Pressure 110/72 05/07/2025 9:35 AM EDT Pulse 85 05/07/2025 9:35 AM EDT Temperature 36.6 C (97.8 F) 07/03/2020 9:00 AM EDT Respiratory Rate 18 07/03/2020 12:35 PM EDT Oxygen Saturation 90% 05/07/2025 9:35 AM EDT Inhaled Oxygen Concentration - - Weight 71.8 kg (158 lb 3.2 oz) 05/07/2025 9:35 A M EDT Height 167.6 cm (5' 6 ) 05/07/2025 9:35 AM EDT Body Mass Index 25.53 05/07/2025 9:35 AM EDT Plan of Treatment Upcoming Encounters Date Type Department Care Team (Late st Contact Info) Description 05/13/2026 4:00 PM EDT Office Visit [facility] [address] [place] [address] Jessee Sutton MD [address] [place] [address] Health Maintenance Due Date Last Done Comments DXA SCAN 1940 Pneumococcal Vaccine 50+ (1 of 2 - PCV) 1959 TDAP/TD VACCINES (1 - Tdap) 1959 RSV Vaccine - Adults (1 - 1- dose 75+ series) 2015 ANNUAL WELLNESS VISIT 07/16/2017 LIPID PANEL 09/13/2024 09/13/2023, 06/09, 04/08/2020 INFLUENZA VACCINE 06/08/2025 07/19/2024, , 08/02/2020, Additional history exists COVID-19 Vaccine ( - 2024-2 6 season) 2025 05/14/2022, 08/04/2021, 01/07/2021, Additional history exists ZOSTER VACCINE Completed 04/24/2024, 11/29/2023 Medical Devices Implanted Type Area Bowling Ball Assembler Device Identifier Shelf Expiration Date Model / Serial / Lot Stnt Xience Elizabeth Everolimus Allen 2.5x33mm - [id number] Implanted:Qty: 1 on 07/03/2020 by Jessee Lee MD at [facility] [employer] [id number] / / Stnt Xience Elizabeth Everolimus Allen 2.5x23mm - [id number] Implanted:Qty: 1 on 07/03/2020 by Jessee Lee MD at [facility] [employer] [id number] / / Procedures Procedure Name Priority Date/Time Associated Diagnosis Comments LIPID PANEL Routine 09/13/2023 12:02 PM EST Mixed hyperlipidemia from Last 3 Months or Most Recently Relevant to Health Maintenance Results * (ABNORMAL) Lipid Panel (09/13/2023 12:02 PM EST) Total Cholesterol 111 0 - 200 mg/dL 09/13/2023 6:54 PM EST [facility] Triglycerides 83 0 - 150 mg/dL 09/13/2023 6:54 PM EST [facility] HDL Cholesterol 61(H) 40 - 60 mg/dL 09/13/2023 6:54 PM EST [facility] LDL Cholesterol 34 0 - 100 mg/dL 09/13/2023 6:54 PM EST [facility] VLDL Cholesterol 16 5 - 40 mg/dL 09/13/2023 6:54 PM EST [facility] LDL/HDL Ratio 0.55 09/13/2023 6:54 PM EST [facility] Blood Venipuncture / Unknown 09/13/2023 12:02 PM EST 09/13/2023 12:04 PM EST Narrative [facility] - 09/13/2023 6:54 PM EST Cholesterol Reference Ranges (U.S. Department of Health and Human Services ATP III Classifications) Desirable <200 mg/dL Borderline High 200-239 mg/dL High Risk >240 mg/dL Triglyceride Reference Ranges (U.S. Department of Health and Human Services ATP III Classifications) Normal <150 mg/dL Borderline High 150-199 mg/dL High 200-499 mg/dL Very High >500 mg/dL HDL Reference Ranges (U.S. Department of Health and Human Services ATP III Classifications) Low <40 mg/dl (major risk factor for CHD) High >60 mg/dl ('negative' risk factor for CHD) LDL Reference Ranges (U.S. Department of Health and Human Services ATP III Classifications) Optimal <100 mg/dL Near Optimal 100-129 mg/dL Borderline High 130-159 mg/dL High 160-189 mg/dL Very High >189 mg/dL Jessee Sutton MD LAB BLOOD ORDERABLES Final Resul t [facility]
[address] [place] [address], from Last 3 Months or Most Recently Relevant to Health Maintenance Insurance MEDICARE A & B [facility] SU[facility] Advance Directives * CPR (Attempt to Resuscitate) (Latest Code Status on File) Date Activated Date Inactivated Comments 07/03/2020 1:09 PM 07/03/2020 7:42 PM Question Answer Comments Code Status (Patient has no pulse and is not breathing): CPR (Attempt to Resuscitate) Medical Interventions (Patie nt has pulse or is breathing): Full Level Of Support Discussed With: Patient * CPR (Attempt to Resuscitate) Date Activated Date Inactivated Comments 06/18/2020 3:57 PM 06/21/2020 6:53 PM Question Answer Comments Code Status (Patient has no pulse and is not breathing): CPR (Attempt to Resuscitate) Medical Interventions (Patie nt has pulse or is breathing): Full Level Of Support Discussed With: Patient * CPR (Attempt to Resuscitate) Date Activated Date Inactivated Comments 04/08/2020 3:07 PM 04/08/2020 8:22 PM Question Answer Comments Code Status (Patient has no pulse and is not breathing): CPR (Attempt to Resuscitate) Medical Interventions (Patie nt has pulse or is breathing): Full Level Of Support Discussed With: Patient Care Teams Electrical And Radio Mechanic Relationship Specialty Start Date End Date Maico Pearson MD [address] [facility] [address] [place] [address] PCP - General Adolescent Medicine 09/02/23
--- OUTSIDE RECORDS SUMMARY | 2025-08-11 11:12 | XMS_ITS | Clinical Summary ---
Author Organization [facility] Address [address] [facility] [address] [place] [address] Phone Care Team Providers Care Environmental Health Technician Name Role Phone Alessio BOOKER, Tyree Ramirez Unavailable [ ] Conditions or Problems No information available. Medications No information available. Medications Administered No information available. Allergies, Adverse Reactions, Alerts No information available. Results Date Name Value Unit Range Flag Description Lab Report: FERRITIN FERRITIN 193.20 ng/mL 13.00-150. H Ferritin [Mass/volume] in Serum or Plasma Plan of Care No information available. Procedures No information available. Vital Signs No information available. Immunizations No information available. Advance Directives No information available.
--- OUTSIDE RECORDS SUMMARY | 2025-08-11 11:12 | XMS_ITS | Clinical Summary ---
Author Organization [facility] Address [facility] [place] [address] Care Team Providers Care Track And Field Coach Name Role Phone Unavailable Primary Care Provider Unavailabl e Social History Tobacco Use Types Packs/Day Years Used Date Smoking Tobacco: Never Assessed Comments Unknown Sex and Gender Information Value Date Recorded Sex Assigned at Not on file Legal Sex Female 9:56 PM EDT Gender Identity Not on file Sexual Orientation Not on file Plan of Treatment Health Maintenance Due Date Last Done Comments DTap,Tdap,and Td (1 - Tdap) 1951 Pneumococcal 50+ (1 of 1 - PCV) 1990 Shingrix (#1) 1990 DEXA Scan 2005 RSV Vaccine (60+ or ) (1 - 1-dose 75+ series) 2015 Influenza Vaccine (#1) 2025 HPV Aged Out No longer eligi ble based on patient's age to complete this topic Meningococcal conjugate josé nt 4 (MCV4) Aged Out No longer eligible b ased on patient's age to complete this topic RSV Immunization (<20 months) Aged Out No longer eligible based on patient's age to complete this topic
== END 2025-08-11 23:59 | disposition home or self-care (01) ==
LOC: LAB 11:11
PROVIDERS: PCP Nurse Practitioner Family; Visit Provider Nurse Practitioner Family
DX: R30.0 Dysuria (principal)
CPT/HCPCS: 87086; 87088; 87186

== ENCOUNTER 2025-08-15 10:50 | Outpatient (CLI) | payer MEDICARE, SELFPAY ==
[2025-08-15 11:45] LABS: Hematocrit 39.2 % (37.0-47.0); Hemoglobin 12.7 g/dL (12.2-16.2); Immature Granulocytes % 0.3 %; Mean Corpuscular HGB Conc 32.4 g/dL (31.8-35.4); Mean Corpuscular Hemoglobin 31.4 pg (27.0-31.2); Mean Corpuscular Volume 97.0 fl (81-99); Nucleated Red Blood Cells % 0 %; Platelet Count 211 K/mm3 (142-424); Red Blood Count 4.04 M/mm3 (4.20-5.40); Red Cell Distribution Width-SD 47.6 fL; White Blood Count 8.0 K/mm3 (4.8-10.8)
[2025-08-15 12:14] LABS: Alanine Aminotransferase 15 U/L (12-78); Albumin Level 3.7 g/dl (3.5-5.0); Albumin/Globulin Ratio 1.3 (1.1-1.8); Alkaline Phosphatase 108 U/L (38-126); Anion Gap 14.1 mEq/L (5-15); Aspartate Amino Transferase 22 U/L (14-36); Bilirubin,Total 0.8 mg/dl (0.2-1.3); Blood Urea Nitrogen 43 mg/dl (7-17); Calcium 8.8 mg/dl (8.4-10.2); Carbon Dioxide 24 mmol/L (22.0-30.0); Chloride 102 mmol/L (98-107); Creatinine,Serum 1.40 mg/dl (0.52-1.04); Estimated Glomerular Filt Rate 36 ml/min (>60); GFR (African American) 43 ML/MIN (>60); Globulin 2.9 g/dL (1.3-3.2); Glucose 54 mg/dl (74-100); Potassium 5.1 mmoL/L (3.5-5.1); Sodium 135 mmol/L (136-145); Total Protein,Serum 6.6 g/dl (6.3-8.2)
[2025-08-15 12:40] VITALS: BP 125/75; PULSE 88; RESP 17
[2025-08-15] MEDS: 0.9 % SODIUM CHLORIDE 250 ML 100 ML IV (12:40)
[2025-08-15] MEDS: CEFTRIAXONE 1 GM 1 GM in 0.9 % SODIUM CHLORIDE 50 ML IV (12:40)
[2025-08-15 12:55] LABS: Microscopic,Cath URINE MICROSCOPIC (MICROSCOPIC)
[2025-08-15 12:58] LABS: Appearance,Urine/Cath CLEAR (Clear); Bilirubin,Cath Negative (Negative); Blood, Urine/Cath Negative (Negative); Color,Urine/Cath YELLOW (Yellow); Glucose,Urine/Cath (UA) 1+ (Negative); Ketones,Urine/Cath Negative (Negative); Leukocyte Esterase,Cath Negative (Negative); Nitrate,Cath Negative (Negative); PH,Urine/Cath 5.5 (5.0-8.5); Protein,Urine/Cath Negative (Negative); Specific Gravity, Urine/Cath 1.015 (1.005-1.030); Urobilinogen,Cath 0.2 EU/dl (0.2)
[2025-08-15 13:06] LABS: WBC,Urine/Cath Occasional #/hpf (0-3)
[2025-08-15 13:15] VITALS: BP 137/73; PULSE 83; RESP 16
[2025-08-15 13:45] VITALS: BP 126/67; PULSE 85; RESP 16
[2025-08-15 15:10] VITALS: BP 139/75; PULSE 86; RESP 16
== END 2025-08-15 23:59 | disposition home or self-care (01) ==
LOC: INF 10:53
PROVIDERS: PCP Internal Medicine Adolescent Medicine; Visit Provider Nurse Practitioner Family
DX: N39.0 Urinary tract infection, site not specified (principal); R53.1 Weakness
CPT/HCPCS: 36415; 80053; 81001; 85025; 87040; 96360; 96361; 96365; 96366; 96367; J0696; J7050

== ENCOUNTER 2025-09-20 07:11 | Outpatient (CLI) | payer MEDICARE, SELFPAY ==
--- OUTSIDE RECORDS SUMMARY | 2020-05-06 18:45 | XMS_ITS | Encounter Summary ---
Author Organization [facility] Address [address] [place] [address] Care Team Providers Care Public Health Administrator Name Role Phone Melvin Lang MD Primary Care Provider [phone] Reason for Referral * Hospital - Outpatient (Routine) - Closed Specialty Diagnoses / Procedures Referred By David mcginnis Referred To Contact Sleep Medicine Diagnoses NYDIA (obstructive sleep apnea) Procedures Polysomnography 4 or More Parameters April Thrasher APRN [address] [place] [address] Phone: tel: fax: [facility] [address] [address] Phone: tel: fax: Referral ID Status Reason Start Date Expiration Date Visits Re quested Visits Authorized [id number] Closed 04/17/2020 04/17/2021 1 1 Reason for Visit * Hospital - Outpatient (Routine) - Closed Specialty Diagnoses / Procedures Referred By David mcginnis Referred To Contact Sleep Medicine Diagnoses NYDIA (obstructive sleep apnea) Procedures Polysomnography 4 or More Parameters April Thrasher APRN [address] [place] [address] Phone: tel: fax: [facility] [address] [address] Phone: tel: fax: Referral ID Status Reason Start Date Expiration Date Visits Re quested Visits Authorized [id number] Closed 04/17/2020 04/17/2021 1 1 Encounter Details Date Type Department Care Team (Late st Contact Info) Description 05/06/2020 7:45 PM EDT Hospital Encounter [facility] [address] [place] [id number] April Thrasher, PLOW HOLDER [address] [place] [address] NYDIA (obstructive sleep apnea) Social History Tobacco Use Types Packs/Day Years Used Date Smoking Tobacco: Never Passive Smoke Exposure: Never Smokeless Tobacco: Never Alcohol Use Standard Drinks/Week Comments Never 0 (1 standard drink = 0.6 oz pur e alcohol) AUDIT-C Answer Date Recorded Q1: How often do you have a drink containing alc ohol? Never 11/21/2020 Average Number of Drinks Not on file 021 Frequency of Binge Drinking Not on file 11/08 Comments No Sex and Gender Information Value Date Recorded Sex Assigned at Not on file Legal Sex Female 11:45 AM EDT Gender Identity Not on file Sexual Orientation Not on file documented as of this encounter Last Filed Vital Signs Vital Sign Reading Time Taken Comments Blood Pressure 137/67 05/06/2020 8:33 PM EDT Pulse 47 05/06/2020 8:33 PM EDT Temperature - - Respiratory Rate - - Oxygen Saturation 93% 05/06/2020 8:33 PM EDT Inhaled Oxygen Concentration - - Weight 71.4 kg (157 lb 6.5 oz) 05/06/2020 8:33 P M EDT Height 165.1 cm (5' 5 ) 05/06/2020 8:33 PM EDT Body Mass Index 26.19 05/06/2020 8:33 PM EDT documented in this encounter Functional Status documented as of this encounter Plan of Treatment Upcoming Encounters Date Type Department Care Team (Late Contact Info) Description 05/13/2026 4:00 PM EDT Office Visit [facility] [address] [place] [address] Jessee Sutton MD [address] [place] [address] documented as of this encounter Procedures Procedure Name Priority Date/Time Associated Diagnosis Comments NPSG Routine 05/07/2020 5:09 AM EDT NYDIA (obstructive sleep apnea) documented in this encounter Results * NPSG (05/07/2020 5:09 AM EDT) Narrative Jose Valencia MD - 05/12/2020 3:30 PM EDT Polysomnography Report Patient Name: Subha Ponce Interpreting Physician: Jose Valencia MD Date of : 1940 Referring Physician: No info available Primary Care Physician: Melvin Lang MD Date of Study: Clinical Information 80-year-old female with poor sleep quality, restless leg symptoms, overnight hypoxemia on nocturnal oxygen, dyspnea, and mild pulmonary hypertension. She was referred to our pulmonary office and a polysomnogram was ordered among other tests. Methods used for Diagnostic Study: Subject was monitored in the sleep laboratory. Electroencephalogram (C3/M2, C4/M1, F3/M2, F4/M1, 01/M2, O2/M1), EOG, EKG, and EMG (chin and bilateral anterior tibialis) were monitored by surface electrodes and recorded utilizing a computerized polygraph. Airflow was recorded by a thermistor and pressure transducer at the nose and mouth and oxygen saturation was recorded by a pulse oximeter. Thoracic and abdominal respiratory movements were recorded on 2 separate channels by respiratory inductive plethysmograph. Sleep stages were scored by standard techniques and abnormal respiratory events, cardiac arrhythmias, and leg movements were analyzed. Polysomnography Results A) Sleep statistic and architecture: The patient had a sleep efficiency of Sleep Efficiency (%): 44.8 % . Sleep latency was Sleep Latency (min): 37 minutes. All stages of sleep were seen during the study. The arousal index was Spontaneous Arousal Index (#/hr TST): 0.6 per hour. B) Respiratory events: Apnea-hypopnea index was AHI: 32.4 per hour. The respiratory disturbance index was RDI (if applicable): 32.4 per hour. C) Snoring: Snoring was noted to be present by the maintenance department technician in attendance. D) Oxygen saturation: Oxygen saturation had a mean of Arterial Oxygen Saturation, Mean Value (%): 85 % % with a minimum oxygen saturation of Min SpO2: 74 % %. E) Periodic limb movements: The periodic limb movement index was elevated at Total # PLMS Arousals: 5 per hour. F) ECG: No prolonged arrhythmias. G) Further detail to follow. Diagnostic Summary Total Recording Time: Total Recording Time (TIB) (min): 424.9 minutes Total Sleep Time: Total Sleep Time (TST)(min): 190.5 minutes Sleep Latency: Sleep Latency (min): 37 Stage R Latency: Stage R Latency (min): 50 min Sleep Efficiency: Sleep Efficiency (%): 44.8 % Respiratory Data Obstructive Apnea Index: Obstructive Apnea Index (#/hr TST): 1.3 Central Apnea Index: Central Apnea Index (#/hr TST): 0.3 Mixed Apnea Index: Mixed Apnea Index (#/hr TST): 0.3 Obstructive Hypopnea Index: Obstructive Hypopnea Index (#/hr TST): 30.6 Total Apnea Index: Total Apnea Index (#/hr TST): 1.9 AHI: AHI: 32.4 RDI: RDI (if applicable): 32.4 NREM Total Apnea Idex: NREM Total Al (#/hr TST): 1.5 REM Total Apnea Index: REM TOTAL Al (#/hr TST): 0 REM Hypopnea Index: REM Hypopnea Index: 46.8 NREM Hypopnea Index: NREM Hypopnea Index: 26.8 Diagnostic Respiratory Index Summary by Body Position Supine AHI, TOTAL AHI, TOTAL : 120 RDI, TOTAL RDI, TOTAL : 120 TST (min) TST (MIN) : 2.5 Left AHI, TOTAL AHI, TOTAL : 31 RDI, TOTAL RDI, TOTAL : 31 TST (min) TST (min) : 187.5 Right AHI, TOTAL AHI, TOTAL : 120 RDI, TOTAL RDI, TOTAL: 120 TST (min) TST (min) : 0.5 Prone AHI, TOTAL No data recorded RDI, TOTAL No data recorded TST (min) No data recorded Arousals Respiratory Arousal Index: Resp Arousal Index (#/hr TST): 12.9 Leg Arousal Index: Leg Arousal Index (#/hr TST): 1.3 Spontaneous Arousal Index: No data recorded Total Arousal Index: Spontaneous Arousal Index (#/hr TST): 0.6 Limb Movements PLMS Index: Total # PLMS Arousals: 5 PLMS Arousal Index: PLMS Index: 44.7 Cardiac Average HR During Sleep: Avg HR During Sleep: 68.6 bpm Highest HR During Sleep: Highest HR During Sleep: 83 bpm Oximetry Minimum SPO2: Min SpO2: 74 % O2 Saturation, Mean Value: Arterial Oxygen Saturation, Mean Value (%): 85 % Impression: Sleep efficiency was poor at 45%. Significant wakefulness was present after around 1 AM. Prior to that the AHI was severely elevated with primarily obstructive events consistent with a severe degree of obstructive sleep apnea. The index was higher during REM sleep. Snoring was noted. Significant oxygen desaturations were noted and in fact the average oxygen saturation through the night was 88%. A significant elevation of the PLM index was present though very few of these events were associated with arousals. Overall impression is one of severe obstructive sleep apnea. It should be noted that many periodic limb movements were present though they were not associated with independent arousals and their clinical significance is unclear, particularly in the light of untreated obstructive sleep apnea. Plan: Would recommend treatment with auto CPAP therapy and then, if compliance and download acceptable, consider overnight oximetry on CPAP therapy but expect that she will continue to need oxygen even with CPAP therapy. Would follow-up on her restless leg symptoms. If they persist on CPAP then further work-up could ensue and could consider pharmacologic therapy if appropriate. Follow-up: Dr. Mares/April Thrasher APRN Electronically signed by: Jose Valencia MD 05/12/20 15:24 April Thrasher APRN SLEEP CENTER ORDERABLES Fi nal Result documented in this encounter Visit Diagnoses Diagnosis NYDIA (obstructive sleep apnea) Obstructive sleep apnea (adult) (pediatric) documented in this encounter Additional Health Concerns Infection Onset Date Last Indicated Resolved Time COVID (confirmed) Comment:Per Dr. Nish Mccallum, false positive. Isolation precautions were discontinued during previous admission. -Poonam Mijares, RN, BSN, CIC - Infection Control 06/18/2020 06/18/2020 07/02/2020 11:48 AM EDT COVID (rule out) 06/18/2020 06/18/2020 06/18/2020 4:54 PM EDT documented as of this encounter Care Teams Public Health Administrator Relationship Specialty Start Date End Date Melvin Lang MD [address] [place] [address] PCP - General 01/03/16 09/01/23 documented as of this encounter
--- OUTSIDE RECORDS SUMMARY | 2025-09-20 07:16 | XMS_ITS | Encounter Summary ---
Author Organization [facility] Address [address] [place] [address] Care Team Providers Care Visual Developer Name Role Phone Maico Pearson MD Primary Care Provider [phone] Reason for Visit * Reason Onset Date Comments Med Refill 07/31/2025 Encounter Details Date Type Department Care Team (Late st Contact Info) Description 07/31/2025 Refill [facility] [address] [facility] [address] [place] [phone] Jessee Sutton MD [address] [facility] [address] [place] [address] Med Refill Social History Tobacco Use Types [...] Description 05/13/2026 4:00 PM EDT Office Visit [facility] [address] [facility] [address] [place] [phone] Jessee Sutton MD [address] [facility] [address] [place] [address] documented as of this encounter Visit Diagnoses Not on filedocumented in this encounter Care Teams Visual Developer Relationship Specialty Start Date End Date Maico Pearson MD [address] [facility] [address] [place] [address] PCP - General Adolescent Medicine 09/02/23 documented as of this encounter
--- OUTSIDE RECORDS SUMMARY | 2025-09-20 07:16 | XMS_ITS | Clinical Summary ---
Author Organization [facility] Address [facility] [address] Care Team Providers Care [place] Name Role Phone Unavailable Primary Care Provider [...]
--- OUTSIDE RECORDS SUMMARY | 2025-09-20 07:16 | XMS_ITS | Clinical Summary ---
Author Organization [facility] Address [address] [place] [address] Care Team Providers Care Hand Alterations Tailor Name Role Phone Melvin Lang MD Primary Care Provider Medications Entresto 24-26 MG tablet 04/27/2024 Active [...] Years (1 of 1 - PCV) 1990 [id number] Vaccine ( season) 2025 05/14/2022, 08/04/2021, 01/07/2021, [...] this topic Insurance MEDICARE AETNA Care Teams Hand Alterations Tailor Relationship Specialty Start Date End Date Melvin Lang MD [address] [place] [address] #1 #1 [place] [address] PCP - General 03/21/21
--- OUTSIDE RECORDS SUMMARY | 2025-09-20 07:16 | XMS_ITS | Clinical Summary ---
Author Organization [facility] Address [address] [place] [address] Care Team Providers Care Press Setup Operator Name Role Phone Maico Pearson MD Primary Care Provider [phone] Allergies Active Allergy Reactions Criticality Noted Date [...] (OXYGEN) Inhale 2 L/min Every Night. Active hydroxychloroquine (PLAQUENIL) 200 MG tablet Take 1 tablet by mouth Daily. 3 Active metoprolol succinate XL (TOPROL-XL) 50 MG 24 hr tablet Take 1 tablet by mouth Daily. 90 tablet 3 4 Active eszopiclone (LUNESTA) 2 MG tablet Take 1 tablet by mouth Every Night. 4 Active aspirin 81 MG EC tabletIndications: Cramp in lower leg,PVD (peripheral vascular disease) with claudication,Nonrh eumatic mitral valve regurgitation Take 1 tablet by mouth Daily. 90 tablet 3 4 Active sacubitril-valsart an (Entresto) 24-26 MG tablet TAKE 1 TABLET [...] mouth Daily. 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 [facility] [facility] [address] [place] [address] Jessee Sutton MD Med Refill 07/31/2025 Refill [facility] [address] [facility] [facility] [address] [place] [address] Jessee Sutton MD Med Refill from Last [...] 05/13/2026 4:00 PM EDT Office Visit [facility] [address] [facility] [address] [place] [address] Jessee Sutton MD [address] [facility] [facility] [address] [place] [address] Health Maintenance Due Date Last Done Comments [...] 04/24/2024, 11/29/2023 Medical Devices Implanted Type Area Machine Designer Device Identifier Shelf Expiration Date Model / Serial / Lot Stnt Xience Elizabeth Everolimus Allen 2.5x33mm - [id number] Implanted:Qty: 1 on 07/03/2020 by Jessee Lee MD at [facility] [employer] [id number] / / Stnt Xience Elizabeth Everolimus Allen 2.5x23mm - [id number] Implanted:Qty: 1 on 07/03/2020 by Jessee Lee MD at [facility] [employer] [id number] / / Procedures Procedure Name Priority Date/Time Associated Diagnosis Comments LIPID PANEL Routine 09/13/2023 12:02 PM EST Mixed hyperlipidemia from Last 3 Months or Most Recently Relevant to Health Maintenance Results * (ABNORMAL) Lipid Panel (09/13/2023 12:02 PM EST) Total Cholesterol 111 0 - 200 mg/dL 09/13/2023 6:54 PM EST [facility] Triglycerides 83 0 - 150 mg/dL 09/13/2023 6:54 PM EST [facility] HDL Cholesterol 61(H) 40 - 60 mg/dL 09/13/2023 6:54 PM EST [facility] LDL Cholesterol 34 0 - 100 mg/dL 09/13/2023 6:54 PM EST [facility] VLDL Cholesterol 16 5 - 40 mg/dL 09/13/2023 6:54 PM EST [facility] LDL/HDL Ratio 0.55 09/13/2023 6:54 PM EST [facility] Blood Venipuncture / Unknown 09/13/2023 12:02 PM EST 09/13/2023 12:04 PM EST Narrative [facility] - 09/13/2023 6:54 PM EST [...] MD LAB BLOOD ORDERABLES Final Resul t [facility]
[address] [place] [address], from Last 3 Months or Most Recently Relevant to Health Maintenance Insurance MEDICARE A & B Member Subscriber Plan / Payer (Ef fective 2001-Present) Name:Subha Ponce Member ID:[id number] Relation to Subscriber:Self Name:Subha Ponce Subscriber ID:[id number] Payer ID:[id number] Group ID:Not on file Type:Not on file Address: [address] SUP Advance Directives * CPR (Attempt to [...] Of Support Discussed With: Patient Care Teams Press Setup Operator Relationship Specialty Start Date End Date Maico Pearson MD [facility] [facility] [address] [address] PCP - General Adolescent Medicine 09/02/23
--- OUTSIDE RECORDS SUMMARY | 2025-09-20 07:16 | XMS_ITS | Data Portability ---
Author Organization [place] - Dolly gomez, [facility] Address [address] [facility] [place] [address] Care Team Providers Care Hosiery Looper Name Role Phone RAJESH CUMMINS Cluster Bore Operator JOAQUIM HERRERA Primary Care Provider TISH ROTHMAN Digital Marketing Specialist Assessment Encounter Date Assessment Date Assessment LastModified by Organization Details LastModified Time 12/14/2024 12/14/2024 Medical history: stem cell transplant for non-Hodgkin's lymphoma in 1999, Chronic kidney disease Diagnoses: burning mouth syndrome, ulcer of mouth Not available 12/14/2024 18:14:02 12/14/2024 12/14/2024 84-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 Chronic Raynaud's. Impression plan as follows: Not available 06/14/2025 12:03:07 Plan of Treatment Reminders Order Date Submit Date Provider Last Modified By Organization Details Last Modified Time Details Appointments RHEUM RECHECK 2024 10:15A M RAJESH CUMMINS MD Not available Not available Not available Lab None recorded. Referral otolaryng ologist referral 2024 025 [email or web address] Marshall Barbour MD, [address] [place], [address], 01/31/2025 09:51:49 Procedures None recorded. Surgeries None recorded. Imaging None recorded. Medication Orders clobetaso l 0.05 % scalp solution 2024 025 [place] [id number], [address] [facility] [address], [place], [phone], 06/13/2025 10:01:55 nystatin 100,000 unit/mL oral suspensio n 2024 025 [place] [facility] #, [address] [facility] [address], [place], [place], [id number], 06/13/2025 10:01:47 clobetaso l 0.05 % topical gel [address] [facility] #, [address] [facility] [address], [place], [place], [id number], 01/31/2025 14:58:05 clobetaso l 0.05 % shampoo 2024 025 [place] [facility] #, [address] [facility] [address], [place], [place], [id number], 01/31/2025 09:43:03 nystatin 100,000 unit/mL oral suspensio n 2024 025 [place] [facility] #, [address] [address] [address], [place], [id number], 01/31/2025 09:42:37 Diflucan 150 mg tablet 2024 025 [place] [facility] #, [address] [address] [place], [id number], 01/31/2025 09:42:41 Lidocaine Viscous 2 % mucosal solution 2024 025 [id number], [address] [facility] [address] [place], [id number], 12/14/2024 18:15:12 hydroxych loroquine 200 mg tablet 2024 025 [id number], [address] [facility] [address] [place], [id number], 12/14/2024 10:09:04 Patient TargetsNo targets recorded. Patient Instructions Encounter Date Encounter Id Patient Instructions Last Modified By Organization Details Last Modified Time 12/14/2024 [id number] 84 year-old mima sheth comes in today, referred by Dr. Cummins, with a sore and pain of right buccal mucosa. Has seen Dr. Barbour in the past as well as orofacial pain clinic for burning mouth syndrome. Dr. Barbour has prescribed dexamethasone elixir as well as gabapentin 300 mg with no relief. Patient reports that she was supposed to be given a compounded medication from [facility] but never received that. Separately, she has a sore on her buccal mucosa that is bothersome. She notes she may have bit her jaw but does not remember doing so. On exam she has an ulcer of her right buccal mucosa with heaped up scar tissue. This ulcer would be the source of the pain in this area and correlates with where her back teeth come together. Could try topical therapy such as triamcinolone dental paste, topical lidocaine. Also discussed doing a biopsy of this area today for diagnostic purposes . Full risks, complications, and benefits of operative versus non-operative intervention have been thoroughly discussed. Understanding was expressed, informed consent given, and we will proceed with the discussed operative treatment plan. There were no questions for me at the end of the office visit. Rx'd triamcinolone dental paste and viscous lidocaine. Will contact the patient with the biopsy results. Not available 12/14/2024 18:19:20 Reason for Referral Incident Response Analyst Referral fo r Candidiasis of mouth oral lesion right buccal mucosa Referring Physician: Rajesh Cummins, Rheumatology, Encounter Date: 01/31/2025 Results Created Date Observation Date Name Description Value Unit Range Abnormal Flag Note LastModifiedBy Organization Detail LastModifiedTime 12/14/1912/14/2024 SURGI ASHLE[facility] surgical SEE BELOW normal Surgi ashleigh Patho logy Repor t NAME: SUBHA SKY PATH: [id number] DATE of : 04/20 26 Copy to: Diagn osis: Punch biops y of right bucca l mucos a: Ulcer with atypi ashleigh squam ous hyper plasi a, parak erato sis and Marisela diasi s; see comme nt. - Negat hay for dyspl иван and malig amber Comme nt: Favor react hay atypi a but corre latio n with intra opera tive findi ngs to ensur e adequ ate sampl ing is sugge sted. SOURC E OF SPECI MEN: MOUTH , RIGHT BUCCA L MUCOS A CLINI ASHLE[facility] INFOR MATIO N: K13.7 0 PUNCH BX Gross Descr iptio n: Patie nt's name and date of verif ied. Recei valeria in forma miles label ed with the patie nt's name and desig nated punc h biops y of right bucca l mucos a is a fragm ented possi ble punch biops y consi sting of two irreg ular piece s of menon-w vicky to menon-r ed, khadar h to rough ened tissu e each measu ring 0.4 x 0.3 x 0.2 cm. The presu med sharif n of both piece s is inked blue. Entir silvio submi tted in a singl e casse tte label ed A1. SB 12/14 07:26 PM Micro scopi c Descr iptio n: Secti ons show fragm ents of squam ous mucos a with squam ous hyper plasi a and focal ulcer ation and. PAS stain for fungu s is posit hay for funga l eleme nts suppo rting Marisela diasi s. Stain contr ol worke d appro priat silvio. P40 immun ohist ochem ical stain with a prope rly worki ng contr ol shows no invas hay squam ous carci noma ident ified . ALONDRA HUSAM GOMEZ MD Yana d Out Date: 12/15 16:25 Page 1 of 1 Not Available [facility] [address] [place] [address], [phone], 12/15/2024 16:26:04 Result Notes None recorded. Problems Name Problem SNOMED Code Status Onset Date Resolution Date Notes Provider Name and Address Organization Details Recorded Time Constipation 07591639 Active 2017 [facility] 8 10:59:51 Cramp in lower leg 290201736 Active 2017 [facility] 8 11:00:13 Dermatomyositi s 292946306 Active 2024 Wallace Singleton [facility] 5 13:43:03 Notes:thyroid Problem Notes None recorded. Procedures Surgical History Date Name Laterality Status Provider Name and Address Organization Details Recorded Time 12/14/19 25 Biopsy Mouth completed ANN GARCIA MD [address] [place], [address], [facility] 12/14/2024 18:13:53 03/21/20 24 Destruction Premalignant Lesion(s) completed Betys Jasmin [facility] 03/21/2024 14:20:53 11/08/19 15 Date of Last Mammogram completed [facility] 06/15/2018 11:01:51 11/08/19 15 Date of Last Colonoscopy completed [facility] 06/15/2018 11:02:11 11/08/19 08 Most Recent Bone Density completed [facility] 06/15/2018 11:02:35 Hysterectomy/rev ise vagina completed [facility] 06/15/2018 10:57:47 Appendectomy completed [facility] 06/15/2018 10:58:00 Imaging Results None recorded. Procedure Notes None recorded. Medical Equipment None Reported. Allergies Allergen ID Allergen Name Allergen Category Reaction Reaction Severity Criticality Documentation Date Start Date Code Code System Note Provider Name and Address Organization Details Recorded Time 19880109 adhesive tape environme nt,medica tion Not available Not available Not available 10/01/20162007 Comme nt: Creat ed By: Karlo EverettCrea chalino Date: 2007 12:33 :02 PM; Not Available [facility] 6 12:17:28 [id number] Product containin g penicilli n (product) medicatio n Not available Not available Not available 10/02/20162006 59007 8001 SNOMED Comme nt: Creat ed By: Nabor miller;Cr eated Date: 2006 11:57 :42 AM; Not Available [facility] 6 03:33:01 [id number] iodine medicatio n Not available Not available Not available 10/02/20162006 5933 RxNorm Comme nt: Creat ed By: Nabor miller;Cr eated Date: 2006 11:57 :50 AM; Not Available [facility] 6 03:33:01 Medications Name Sig Start Date Stop Date Status Note LastModified by Organization Details LastModified Time compound drug active Not Available Not Available Not Available losartan 50 mg tablet TAKE 1 TABLET BY MOUTH ONCE DAILY 11/19 completed Not Available Not Available Not Available buspirone 5 mg tablet TAKE 1 TABLET BY MOUTH TWICE DAILY active Not Available Not Available No t Available nystatin 100,000 unit/mL oral suspensio n SHAKE LIQUID AND TAKE 5 ML BY MOUTH FOUR TIMES DAILY FOR 14 DAYS active Not Available Not Available No t Available potassium chloride ER 10 mEq capsule,e xtended release active Not Available Not Available Not Available prednison e 10 mg tablet TAKE 1 TABLET BY MOUTH TWICE DAILY FOR 10 DAYS 11/19 completed Not Available Not Available Not Available doxycycli ne hyclate 100 mg capsule TAKE 1 CAPSULE BY MOUTH TWICE DAILY FOR 7 DAYS 12/18 completed complete d Not Available Not Available Not Available atorvasta tin 20 mg tablet TAKE 1 TABLET BY MOUTH DAILY 12/14 completed Not Available Not Available Not Available ropinirol e 1 mg tablet TAKE 1 TABLET BY MOUTH THREE TIMES DAILY active Not Available Not Available No t Available ketoconaz ole 2 % shampoo active Not Available Not Available Not Available atorvasta tin 10 mg tablet TAKE 1 TABLET BY MOUTH EVERY NIGHT active Not Available Not Available No t Available azithromy toan 250 mg tablet 12/18 completed Pt disconti nued Not Available Not Available Not Available Lidocaine Viscous 2 % mucosal solution RINSE AND GARGLE 3 ML BY MOUTH EVERY 3 HOURS active Not Available Not Available No t Available fluconazo le 150 mg tablet TAKE 1 TABLET BY MOUTH EVERY DAY FOR 1 DAY active Not Available Not Available No t Available metoprolo l succinate ER 50 mg tablet,ex tended release 24 hr TAKE 1 TABLET BY MOUTH DAILY active Not Available Not Available No t Available cimetidin e 400 mg tablet TAKE 1 TABLET BY MOUTH TWICE DAILY FOR 30 DAYS active Not Available Not Available No t Available ranitidin e 300 mg tablet 06/15 completed Not Available Not Available Not Available fluconazo le 200 mg tablet TAKE 1 TABLET BY MOUTH FOR 10 DAYS active Not Available Not Available No t Available sucralfat e 1 gram tablet 06/15 completed Not Available Not Available Not Available alendrona te 70 mg tablet active Not Available Not Available Not Available estradiol 0.05 mg/24 hr weekly transderm al patch active Not Available Not Available Not Available prednison e 5 mg tablet 06/15 completed Not Available Not Available Not Available atenolol 25 mg tablet 05/02 completed Not Available Not Available Not Available clobetaso l 0.05 % topical cream APPLY TOPICALL Y TO THE AFFECTED AREA TWICE DAILY active Not Available Not Available No t Available hydralazi ne 25 mg tablet 05/02 completed Not Available Not Available Not Available triamcino lone acetonide 0.5 % topical ointment APPLY TOPICALL Y TWICE DAILY FOR 7 DAYS active Not Available Not Available No t Available potassium chloride ER 10 mEq tablet,ex tended release active Not Available Not Available Not Available nifedipin e ER 30 mg tablet,ex tended release active Not Available Not Available Not Available clopidogr el 75 mg tablet TAKE 1 TABLET BY MOUTH EVERY DAY 12/14 completed Not Available Not Available Not Available acyclovir 400 mg tablet Take 1 tablet twice a day by oral route for 14 days. 04/05 completed Not Available Not Available Not Available estradiol 0.05 mg/24 hr semiweekl y transderm al patch 05/02 completed Not Available Not Available Not Available ciproflox acin 500 mg tablet 12/18 completed Pt disconti nued Not Available Not Available Not Available omeprazol e 40 mg capsule,d elayed release TAKE 1 CAPSULE BY MOUTH DAILY active Not Available Not Available No t Available tramadol 50 mg tablet TAKE 1 TABLET BY MOUTH IN THE MORNING AND 2 TABLETS IN THE EVENING active Not Available Not Available No t Available triamcino lone acetonide 0.1 % topical cream APPLY CREAM EXTERNAL LY TWICE DAILY FOR 10 DAYS 12/18 completed Pt disconti nued Not Available Not Available Not Available clobetaso l 0.05 % topical gel APPLY THIN LAYER TOPICALL Y TO THE AFFECTED AREA TWICE DAILY FOR 14 DAYS active Not Available Not Available No t Available dexametha sone 0.5 mg/5 mL oral elixir Swish, gargle and spit 5ml po bid x 5 days active Not Available Not Available No t Available mycopheno late mofetil 500 mg tablet active Not Available Not Available Not Available prednison e 10 mg tablets in a dose pack 06/15 completed Not Available Not Available Not Available lorazepam 0.5 mg tablet TAKE 1 TABLET BY MOUTH DAILY NEEDED active Not Available Not Available No t Available metoclopr amide 5 mg tablet 2 daily 12/18 completed stopped Not Available Not Available Not Available temazepam 15 mg capsule 12/18 completed pt states she is no taking this Not Available Not Available Not Available methotrex ate sodium 2.5 mg tablet Take 4 tablets every week by oral route for 30 days. 06/13 completed Not Available Not Available Not Available temazepam 30 mg capsule TAKE 1 CAPSULE BY MOUTH DAILY AT BEDTIME 12/18 completed stopped Not Available Not Available Not Available phenazopy ridine 100 mg tablet TAKE 2 TABLETS BY MOUTH THREE TIMES DAILY AFTER MEALS FOR 2 DAYS active Not Available Not Available No t Available cephalexi n 500 mg capsule 06/15 completed Not Available Not Available Not Available pantopraz ole 40 mg tablet,de layed release 06/15 completed Medicati on Descript ion: pantopra zole; Route:or al; refills: 0 Not Available Not Available Not Available cyanocoba danie (vit B-12) 1,000 mcg/mL injection solution USE DIRECTED TO INJECT IN THE MUSCLE ONCE MONTHLY active Not Available Not Available No t Available trazodone 150 mg tablet active Not Available Not Available Not Available esomepraz ole magnesium 40 mg capsule,d elayed release 05/02 completed Not Available Not Available Not Available triamcino lone acetonide 0.1 % topical ointment 12/18 completed Pt disconti nued Not Available Not Available Not Available prednison e 50 mg tablet 11/19 completed Not Available Not Available Not Available hydrochlo rothiazid e 12.5 mg capsule TAKE 1 CAPSULE BY MOUTH ONCE DAILY IN THE MORNING 05/02 completed Not Available Not Available Not Available fluoxetin e 10 mg capsule 06/15 completed Not Available Not Available Not Available Synthroid 50 mcg tablet Daily active Not Available Not Available Not Available betametha sone dipropion ate 0.05 % topical cream 12/18 completed stopped Not Available Not Available Not Available gabapenti n 300 mg capsule TAKE 1 CAPSULE BY MOUTH THREE TIMES DAILY active Not Available Not Available No t Available leucovori n calcium 5 mg tablet Take 1 tablet every week by oral route. active Not Available Not Available No t Available folic acid 1 mg tablet Take 1 tablet every day by oral route for 90 days. 06/13 completed Not Available Not Available Not Available hydralazi ne 50 mg tablet TAKE 1 TABLET BY MOUTH TWICE DAILY WITH FOOD 05/02 completed Not Available Not Available Not Available furosemid e 20 mg tablet TAKE 1 TABLET BY MOUTH DAILY NEEDED FOR SWELLING OR SHORTNES S OF BREATH active Not Available Not Available No t Available mirtazapi ne 15 mg tablet Take 1 tablet every day by oral route. 12/18 completed stopped Not Available Not Available Not Available gabapenti n 100 mg capsule TAKE 1 CAPSULE PO QHS FOR 1 WEEK 06/09 completed Not Available Not Available Not Available azelastin e 137 mcg (0.1 %) nasal spray 12/15 completed Not Available Not Available Not Available hydroxych loroquine 200 mg tablet TAKE 1 TABLET BY MOUTH TWICE DAILY active Not Available Not Available No t Available prednison e 5 mg tablets in a dose pack 12/18 completed Pt disconti nued Not Available Not Available Not Available fluocinon jessica 0.05 % topical solution active Not Available Not Available Not Available levofloxa toan 500 mg tablet TAKE 1 TABLET BY MOUTH EVERY 24 HOURS FOR 5 DAYS 12/18 completed complete d Not Available Not Available Not Available levofloxa toan 750 mg tablet 11/19 completed Not Available Not Available Not Available zolpidem 10 mg tablet 06/15 completed Not Available Not Available Not Available methylpre dnisolone 4 mg tablets in a dose pack 12/18 completed Pt disconti nued Not Available Not Available Not Available albuterol sulfate HFA 90 mcg/actua tion aerosol inhaler 09/01 completed Not Available Not Available Not Available celecoxib 100 mg capsule 09/01 completed Not Available Not Available Not Available clobetaso l 0.05 % scalp solution APPLY TOPICALL Y TO THE SCALP 1 TIME PER DAY IN THE EVENING active Not Available Not Available No t Available cefdinir 300 mg capsule 09/13 completed Not Available Not Available Not Available fluticaso ne propionat e 50 mcg/actua tion nasal spray,pepe pension SHAKE LIQUID AND USE 2 SPRAYS IN EACH NOSTRIL DAILY 12/18 completed stopped Not Available Not Available Not Available atenolol 50 mg tablet Daily 06/15 completed Not Available Not Available Not Available naproxen 500 mg tablet 06/15 completed Not Available Not Available Not Available Vitamin D3 25 mcg (1,000 unit) tablet Take by oral route. active Not Available Not Available No t Available Premarin 0.625 mg/gram vaginal cream Insert 0.5 applicat orsful 3 times a week by vaginal route at bedtime. 2017 active Not Available Not Available Not Avai labmeryl Klor-Con M10 mEq tablet,ex tended release Two times a day 05/02 completed Not Available Not Available Not Available escitalop melissa 5 mg tablet TAKE 1 TABLET BY MOUTH DAILY AT BEDTIME active Not Available Not Available No t Available BD SafetyGli de Syringe 3 mL 23 x 1 USE DIRECTED active Not Available Not Available No t Available clobetaso l 0.05 % shampoo APPLY A THIN LAYER BY TOPICAL ROUTE ONCE DAILY TO DRY SCALP LEAVE IN PLACE 15 MIN. THEN LATHER AND RINSE. active Not Available Not Available No t Available mirtazapi ne 7.5 mg tablet TAKE 1 TABLET BY MOUTH DAILY AT BEDTIME active Not Available Not Available No t Available nitrofura ntoin monohydra te/macroc rystals 100 mg capsule TAKE 1 CAPSULE BY MOUTH TWICE DAILY FOR 3 DAYS. TAKE WITH FOOD/CATRACHITO L active Not Available Not Available No t Available eszopiclo ne 3 mg tablet TAKE 1 TABLET BY MOUTH DAILY AT BEDTIME active Not Available Not Available No t Available eszopiclo ne 2 mg tablet TAKE 1 TABLET BY MOUTH DAILY AT BEDTIME active Not Available Not Available No t Available eszopiclo ne 1 mg tablet 12/18 completed stopped - dose increase d Not Available Not Available Not Available fluocinol one 0.01 % scalp oil and shower cap active Not Available Not Available Not Available zolpidem ER 12.5 mg tablet,ex tended release,m ultiphase TAKE 1 TABLET BY MOUTH ONCE DAILY NEEDED AT BEDTIME FOR REST FOR 30 DAYS 05/02 completed Not Available Not Available Not Available chlorhexi dine gluconate 0.12 % mouthwash USE 15ML BY MOUTH TWICE DAILY DIRECTED FOR 10 DAYS. SWISH FOR 30 SECONDS AND SPIT 12/18 completed complete d Not Available Not Available Not Available aspirin 81MG QD active Not Available Not Avai lable Not Available alendrona te 06/15 completed Medicati on Descript ion: alendron ate; Route:or al; refills: 0 Not Available Not Available Not Available Vitamin D 06/15 completed Medicati on Descript ion: ergocalc iferol; Route:or al; refills: 0 Not Available Not Available Not Available hydrochlo rothiazid e 12.5 mg tablet 05/02 completed Not Available Not Available Not Available nystatin- hydrocort -diphenhy dr 0.6 gram-0.06 gram/237 mL mouthwash susp Take by mucous route. 12/18 completed stopped Not Available Not Available Not Available Farxiga 5 mg tablet TAKE 1 TABLET BY MOUTH DAILY active Not Available Not Available No t Available Belsomra 10 mg tablet TAKE 1 TABLET BY MOUTH AT BEDTIME NEEDED FOR 14 DAYS 05/02 completed Not Available Not Available Not Available Entresto 24 mg-26 mg tablet TAKE 1 TABLET BY MOUTH TWICE DAILY active Not Available Not Available No t Available baclofen 5 mg tablet active stopped Not Available Not Available Not Available Vitals Date Recorded Body height Provider Name an d Address Organization Details Last Updated DateTime 12/14/2024 167.64 cm Wallace [facility] 0 12/14/2024 13:39:19 Date Recorded Body height Respiratory rate Body mass index (BMI) Body weight Oxygen saturation Oxygen saturation in Arterial blood by Pulse oximetry Heart rate Systolic And Diastolic Provider Name and Address Organization Details Last Updated DateTime 5 167.64 cm 16 /min 25.3 kg/m2 75120 g 98 % 98 % 78 /min 122/78 mm[Hg] [facility] 5 09:59:25 Date Recorded Body height Provider Name an d Address Organization Details Last Updated DateTime 01/31/2025 167.64 cm [facility] 0 01/31/2025 13:08:50 Date Recorded Body height Respiratory rate Body mass index (BMI) Body weight Heart rate Oxygen saturation Oxygen saturation in Arterial blood by Pulse oximetry Systolic And Diastolic Provider Name and Address Organization Details Last Updated DateTime 5 167.64 cm 16 /min 25.3 kg/m2 38847 g 78 /min 98 % 98 % 112/68 mm[Hg] [facility] 5 09:27:38 Date Recorded Body height Respiratory rate Body mass index (BMI) Body weight Oxygen saturation Oxygen saturation in Arterial blood by Pulse oximetry Heart rate Systolic And Diastolic Provider Name and Address Organization Details Last Updated DateTime 5 167.64 cm 16 /min 26.5 kg/m2 66975.1 5 g 98 % 98 % 78 /min 122/82 mm[Hg] [facility] 5 09:52:03 Social History Question Answer Notes LastModified by Organizat ion Details LastModified Time Tobacco Smoking Status [facility] 11:03:18 What Is Your Level Of Caffeine Consumption? Moderate Information not available 06/15/2018 What Was The Date Of Your Most Recent Tobacco Screening? 06/13/2025 [email or web address] Information not available 06/13/2025 Sex: Unknown Functional Status Question Answer Note LastModified by Organization D etails LastModified Time What is your level of alcohol consumption? None Information not available 06/15/2018 Mental Status None recorded. Family History Nothing Reported. Medical History Condition Response Cancer Y Heart Problems Y Chicken Pox Y Thyroid Problems Y Hypertension Y Gynecological History Statement/Question Response Menses Monthly N Date of Last Pap Smear Date of Last Mammogram 11/08/2014 Date of Last Colonoscopy 11/08/2014 Most Recent Bone Density 11/08/2007 Obstetrics History GPAL:G 5 P 5 0 0 5 Type Value Full Term 5 Living 5 Total 5 Immunizations Vaccine Type Date Status Note Provider Nam e and Address Organization Details Recorded Time Influenza, high-dose, trivalent, PF 6 completed Not Available [facility] 06/13/2025 09:38:51 COVID-19, mRNA, LNP-S, PF, 30 mcg/0.3 mL dose 1 completed Not Available [facility] 06/13/2025 09:38:51 COVID-19, mRNA, LNP-S, PF, 30 mcg/0.3 mL dose 1 completed Not Available [facility] 06/13/2025 09:38:51 COVID-19, mRNA, LNP-S, PF, 30 mcg/0.3 mL dose 1 completed Not Available [facility] 06/13/2025 09:38:51 COVID-19, mRNA, LNP-S, PF, 30 mcg/0.3 mL dose, janell-sucrose 2 completed Not Available [facility] 06/13/2025 09:38:51 Influenza, high-dose, trivalent, PF 3 completed Not Available [facility] 06/13/2025 09:38:51 RSV, recombinant, protein subunit RSVpreF, adjuvant reconstituted, 0.5 mL, PF 3 completed Not Available [facility] 06/13/2025 09:38:51 zoster recombinant 4 completed Not Available [facility] 06/13/2025 09:38:51 zoster recombinant 4 completed Not Available [facility] 06/13/2025 09:38:51 Influenza, high-dose, trivalent, PF 4 completed Not Available [facility] 06/13/2025 09:38:51 Past Encounters Encounter ID Performer Location Encounter Start Date Encounter Closed Date Diagnosis/Indication Diagnosis SNOMED-CT Code Diagnosis ICD10 Code Diagnosis IMO Codes Diagnosis Note [id number] JOSE LOPEZ [address] [place] [address] 06/15/2018 10:31:04 06/15/2018 11:51:31 Vaginal wall prolapse 530183973 N81.10 Atrophy of vagina 371588 009 N95.2 Routine gy necologic examination done [id number] 9101 Z01.419 Infection screening 2437 76984 Z11.3 [id number] JOAQUIM NOONAN MD [facility] [address] [place] [address] 05/02/2021 08:24:55 05/02/2021 09:27:08 Carpal tunnel syndrome of right wrist [id number] 37086 G56.01 Severe right carpal tunnel syndrome with constant numbness, recommend carpal tunnel release. Risks and benefits of the surgery were discussed including transient worsening of symptoms, possible failure to relieve symptoms, possible nerve injury, possible infection, possible stiffness, and no guarantees . I discussed soreness in the palm of the hand and swelling in the wrist which may last for several months after surgery. 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 Confirmed on skin biopsy March 2023 left lateral neck with interface dermatitis . Clinical evidence of periungual erythema minimal Gottron's sign along with shawl sign and scalp lesions. No heliotrope lesion noted. Does not have any gastrointe stinal involvemen t or swallowing difficulti es. Does not have any systemic manifestat ion in particular no evidence of interstiti al lung disease. Strength in proximal and distal extremitie s is physiologi c without any muscle disease. Failed to tolerate steroids, as well as CellCept. Overall, mild disease Suggested trial of hydroxychl oroquine at 200 mg once a day with titration of dose to tolerance and benefit not to exceed more than 400 mg a day in divided doses. She can maintain topical steroid for symptomati c relief. Continue with health [facility] with yearly follow-up with primary care physician as well as oncologist especially in the presence of non-Hodgki n's lymphoma. Follow-up on thyroid nodule with 6 months ultrasonog patricia. Follow-up in 6 months. 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 Currently in the state of remission followed by oncology. Recent CT imaging does not show any evidence of recurrence . Chronic ki dney disease stage 4 956280672 N18.4 Current GFR 42 mL/min. Stage IIIb kidney disease. Must avoid all NSAIDs. Keep follow-up with the primary care physician. In case of pain can take Tylenol Extra Strength couple of times a day. 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 Confirmed on skin biopsy March 2023 left lateral neck with interface dermatitis . Clinical evidence of periungual erythema minimal Gottron's sign along with shawl sign and scalp lesions. No heliotrope lesion noted. Does not have any gastrointe stinal involvemen t or swallowing difficulti es. Does not have any systemic manifestat ion in particular no evidence of interstiti al lung disease. Strength in proximal and distal extremitie s is physiologi c without any muscle disease. Failed to tolerate steroids, as well as CellCept. Suggested she maintain hydroxychl oroquine at 200 mg once a day.Added low-dose methotrexa te at 7.5 mg once a week, leucovorin 5 mg every 12 hours after methotrexa te dose and folic acid 1 mg once a day. Hold off on the corticoste roids for now. Follow clinically . Maintain dermatolog y follow-up for cutaneous manifestat ions and the use of topical steroid as per indicated by the dermatolog y. Refills given. [facility] with yearly follow-up with primary care physician as well as oncologist especially in the presence of non-Hodgki n's lymphoma. Continue to follow up with Dermatolog y Dr. Rothman. Follow-up on thyroid nodule with 6 months ultrasonog patricia. Follow-up in 2 months Non-Hodgki n's lymphoma (clinical) [id number] C85.90 She has a history of non-hodgki ns lymphoma and stem cell transplant .Currently in the state of remission followed by oncology.R ecent CT imaging does not show any evidence of recurrence . Strongly advised her to continue with hematology oncology follow-up as there is increased risk of malignancy in patients with dermatomyo sitis. Chronic ki dney disease stage 4 443279169 N18.4 Current GFR 42 mL/min. Stage IIIb kidney disease. Must avoid all NSAIDs. Keep follow-up with the primary care physician. In case of pain can take Tylenol Extra Strength couple of times a day. 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 Confirmed on skin biopsy March 2023 left lateral neck with interface dermatitis . Clinical evidence of periungual erythema minimal Gottron's sign along with shawl sign and scalp lesions. No heliotrope lesion noted. Does not have any gastrointe stinal involvemen t.Does not have any systemic manifestat ion in particular no evidence of interstiti al lung disease. Strength in proximal and distal extremitie s is physiologi c without any muscle disease. Failed to tolerate steroids, as well as CellCept. Suggested she maintain hydroxychl oroquine at 200 mg twice a day. Consider topical agents for the skin as per dermatolog y. Concerned about mouth sore on Nystatin, no active thrush noted. We discussed the possible use of low-dose methotrexa te at 7.5 mg once a week, if labs show elevated ESR or CK levels. Continue with [facility] with yearly follow-up with primary care physician as well as oncologist especially in the presence of non-Hodgki n's lymphoma. Continue to follow up with Dermatolog y Dr. Rothman. Follow-up on thyroid nodule with 6 months ultrasonog patricia. Follow-up in 3 months Non-Hodgki n's lymphoma (clinical) [id number] C85.90 She has a history of non-hodgki ns lymphoma and stem cell transplant .Currently in the state of remission followed by oncology.R ecent CT imaging does not show any evidence of recurrence . Strongly advised her to continue with hematology oncology follow-up as there is increased risk of malignancy in patients with dermatomyo sitis. Chronic ki dney disease stage 4 [id number] N18.4 Current GFR 42 mL/min. Stage IIIb kidney disease. Must avoid all NSAIDs. Keep follow-up with the primary care physician. In case of pain can take Tylenol Extra Strength couple of times a day. 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 Confirmed on skin biopsy March 2023 left lateral neck with interface dermatitis . Clinical evidence of periungual erythema minimal Gottron's sign along with shawl sign and scalp lesions. No heliotrope lesion noted. Does not have any gastrointe stinal involvemen t.Does not have any systemic manifestat ion in particular no evidence of interstiti al lung disease. Strength in proximal and distal extremitie s is physiologi c without any muscle disease. Failed to tolerate steroids, as well as CellCept. Suggested she maintain hydroxychl oroquine at 200 mg twice a day. Suggested to start low-dose methotrexa te at 10 mg once a week, plus folic acid once a day. Follow clinically if symptoms do not improve we will titrate the dose of methotrexa te to her tolerance or benefit. Continue with [facility] with yearly follow-up with primary care physician as well as oncologist especially in the presence of non-Hodgki n's lymphoma. Suggested she follow up with Dermatolog y Dr. Vaughan. Labs dated 11/19/2023 reviewedES R 32CK 51 Follow-up on thyroid nodule with 6 months ultrasonog patricia.Venita moreno labs Follow-up in 3 months Non-Hodgki n's lymphoma (clinical) [id number] C85.90 She has a history of non-hodgki ns lymphoma and stem cell transplant .Currently in the state of remission followed by oncology.R ecent CT imaging does not show any evidence of recurrence . Strongly advised her to continue with hematology oncology follow-up as there is increased risk of malignancy in patients with dermatomyo sitis. Chronic ki dney disease stage 4 [id number] N18.4 Current GFR 42 mL/min. Stage IIIb kidney disease. Must avoid all NSAIDs. Keep follow-up with the primary care physician. In case of pain can take Tylenol Extra Strength couple of times a day. [id number] LOUIS VAUGHAN MD [address] [address] 03/21/2024 13:02:04 03/23/2024 15:28:38 Dermatomyositis [id number] M33.13 Nature of diagnosis discussed. Recommend restart rx Clobetasol 0.05% topical cream QHS, apply with cotton gloves over top.Will call in Clobetasol if pt does not have at home. 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 Confirmed on skin biopsy March 2023 left lateral neck with interface dermatitis . Clinical evidence of periungual erythema minimal Gottron's sign along with shawl sign and scalp lesions. Phonic findings. No active lesion noted. No heliotrope lesion noted. Does not have any gastrointe stinal involvemen t.Does not have any systemic manifestat ion in particular no evidence of interstiti al lung disease. Strength in proximal and distal extremitie s is physiologi c without any muscle disease. She will continue with the hydroxychl oroquine at 200 mg twice a day. She has failed to tolerate the methotrexa te as well as the CellCept. Suggested she maintain hydroxychl oroquine at 200 mg twice a day. Continue with [facility] with yearly follow-up with primary care physician as well as oncologist especially in the presence of non-Hodgki n's lymphoma. Suggested she follow up with Dermatolog y as planned Labs 06/01/24 reviewed all normal Improvemen t in Kidney functions. 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 Her last CT imaging does not show any evidence of recurrence . Strongly advised her to continue with hematology oncology follow-up as there is increased risk of malignancy in patients with dermatomyo sitis. Chronic ki dney disease stage 4 872106127 N18.4 She has chronic kidney disease with GFR 42 mL/min. Stage IIIb kidney disease. Must avoid all NSAIDs. Keep follow-up with the primary care physician. In case of pain can take Tylenol Extra Strength couple of times a day. 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 Burning pain not improved with Nystatin or Peridex. Will do dexamethas one elixir for 10 days. If not improved may place on gabapentin . Will also check B12 and folic acid levels. F/u 3-4 weeks [id number] [place] [address] [place] [address] 10/04/2024 09:28:57 10/04/2024 15:51:43 Burning mouth syndrome [id number] K14.6 No improvemen t with dexamethas one elixir or gabapentin 300 mg however she was only taking gabapentin once daily due to SEs. No evidence of mucosal irregulari ty, infection or malignant disease. Consult [facility]. Recommend she stop gabapentin . F/u prn [id number] [place] [address] [place], [place] [address] 12/14/2024 09:47:29 12/19/2024 15:06:28 Dermatomyositis [id number] M33.90 84-year-ol d female with Dermatomyo sitis without muscle involvemen t Amyopathic process. Confirmed on skin biopsy March 2023 left lateral neck with interface dermatitis . Clinical evidence of periungual erythema minimal Gottron's sign along with shawl sign and scalp lesions. Phonic findings. No active lesion noted. No heliotrope lesion noted. Does not have any gastrointe stinal involvemen t.Does not have any systemic manifestat ion in particular no evidence of interstiti al lung disease. Strength in proximal and distal extremitie s is physiologi c without any muscle disease. She will continue with the hydroxychl oroquine at 200 mg twice a day. She has failed to tolerate the methotrexa te as well as the CellCept. Suggested use of arthritis gloves during the day as needed to help with arthralgia s in the hands. In terms of health maintenanc e, continue with health maintenanc e with yearly follow-up with primary care physician as well as oncologist especially in the presence of non-Hodgki n's lymphoma. Suggested she follow up with Dermatolog y as planned Labs 06/01/24 reviewed all normal Improvemen t in Kidney functions. 03/13/24 ESR and CK normal.Of note she has a skin lesion in the inner cheek likely from bite of buccal mucosa , suggested to follow-up with ENT. 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 Her last CT imaging does not show any evidence of recurrence . Strongly advised her to continue with hematology oncology follow-up as there is increased risk of malignancy in patients with dermatomyo sitis. Chronic ki dney disease stage 4 209029022 N18.4 She has chronic kidney disease with GFR 42 mL/min. Stage IIIb kidney disease. Must avoid all NSAIDs. Keep follow-up with the primary care physician. In case of pain can take Tylenol Extra Strength couple of times a day. [id number] ANN GARCIA MD ENT [place] [address] 12/14/2024 12:44:59 12/15/2024 08:19:07 Ulcer of mouth 73858444 K12.1 Burning mo uth syndrome 442938006 K14.6 [id number] RAJESH CUMMINS MD RHEUMATOL OGY [place] [address] 01/31/2025 09:11:56 02/01/2025 04:20:50 Dermatomyositis [id number] M33.90 84-year-ol d female with Dermatomyo sitis without muscle involvemen t Amyopathic process. Confirmed on skin biopsy March 2023 left lateral neck with interface dermatitis . Clinical evidence of periungual erythema minimal Gottron's sign along with shawl sign and scalp lesions. Phonic findings. No active lesion noted. No heliotrope lesion noted. Does not have any gastrointe stinal involvemen t.Does not have any systemic manifestat ion in particular no evidence of interstiti al lung disease. Strength in proximal and distal extremitie s is physiologi c without any muscle disease. She does have recurrent mucous membrane lesion, right buccal mucosa. Had a biopsy done December 2024 with findings consistent with candidiasi s. No malignancy . She will continue with the hydroxychl oroquine at 200 mg twice a day. She has failed to tolerate the methotrexa te as well as the CellCept. On account of recurrent sore in her mouth I have referred her back to ENT. Suggested use of arthritis gloves during the day as needed to help with arthralgia s in the hands. I also recommende d that she use hand warmers as her hands stay very cold along with using asper cream with lidocaine cream on her hands. In terms of health maintenanc e, continue with health maintenanc e with yearly follow-up with primary care physician as well as oncologist especially in the presence of non-Hodgki n's lymphoma. Suggested she follow up with Dermatolog y as planned Labs 06/01/24 reviewed all normal Improvemen t in Kidney functions. 03/13/24 ESR and CK normal.Of note she has a skin lesion in the inner cheek likely from bite of buccal mucosa , suggested to follow-up with ENT. 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 Currently in the state of remission followed by oncology. Her last CT imaging does not show any evidence of recurrence . Strongly advised her to continue with hematology oncology follow-up as there is increased risk of malignancy in patients with dermatomyo sitis. Chronic ki dney disease stage 4 [id number] N18.4 She has chronic kidney disease with GFR 42 mL/min. Stage IIIb kidney disease. Must avoid all NSAIDs. Keep follow-up with the primary care physician. Maintain good hydration in case of pain can take Tylenol Extra Strength couple of times a day. Candidiasis of mouth 797 46163 B37.0 Recurrent candidiasi s. Biopsy in the past 12/14/2024, showed fungal infection. Re-initate nystatin daily along with diflucan. I will also ask if ENT can see her today. 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 Raynaud's phenomenon 266 463174 I73.00 Symptomati c. Suggested keeping her extremitie s warm. 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 Biopsy 12/14/23 was negative for malignancy and autoimmune disorder. Showed evidence of a fungal infection and was treated with nystatin with no improvemen t. On exam looks more like leukoplaki a than ulcer. Does not appear malignant. Does not have a classic appearance of lichen planus. I do not think a repeat biopsy so soon after the previous one would be appropriat e. Will try clobetasol gel. F/u in a few weeks to reevaluate [id number] RAJESH CUMMINS MD RHEUMATOL OGY [address] [place] [address] 06/13/2025 09:37:35 06/13/2025 10:07:14 Dermatomyositis [id number] M33.90 85-year-ol d female with Dermatomyo sitis without muscle involvemen t Amyopathic process. Confirmed on skin biopsy March 2023 left lateral neck with interface dermatitis . Clinical evidence of periungual erythema minimal Gottron's sign along with shawl sign and scalp lesions.No active lesion noted. No heliotrope lesion noted. Does not have any gastrointe stinal involvemen t.Does not have any systemic manifestat ion in particular no evidence of interstiti al lung disease. Strength in proximal and distal extremitie s is fairly stable at this time Oral mucous membranes are much better with the use of nystatin She will continue with the hydroxychl oroquine at 200 mg twice a day. She has failed to tolerate the methotrexa te as well as the CellCept. For Raynaud's she will use the use of precaution from the cold. [facility], [facility] with [facility] with yearly follow-up with primary care physician as well as oncologist especially in the presence of non-Hodgki n's lymphoma. Suggested she follow up with Dermatolog y as planned Lab studies 06/13/2025 reviewed. Reminded eye examinatio n every 12 months. 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 Currently in the state of remission followed by oncology. Her last CT imaging does not show any evidence of recurrence . Strongly advised her to continue with hematology oncology follow-up as there is increased risk of malignancy in patients with dermatomyo sitis. Chronic ki dney disease stage 4 486314348 N18.4 She has chronic kidney disease with GFR 42 mL/min. Stage IIIb kidney disease. Must avoid all NSAIDs. Keep follow-up with the primary care physician. Maintain good hydration Continue Tylenol Extra Strength couple of times a day. 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 Suggested use of solution after shampoo as needed Candidiasis of mouth 797 42088 B37.0 Recurrent candidiasi s. Biopsy in the past 12/14/2024, showed fungal infection. Doing much better. Continue with the as needed use of nystatin. Refills given Raynaud's phenomenon [phone] [id number] I73.00 Chronic and fairly stable at this time No ulcers or infarcts. Suggested keeping her extremitie s warm. She can use Aspercreme with lidocaine for symptomati c relief Contact me in case of any skin breakouts or ulcer. Health Concerns Section Related Observation LastModified by Organization Detai ls LastModified Time None Recorded Concern Status LastModified by Organization Details LastModified Time None Recorded Advance Directives Directive None Recorded Payers Insurance Date Sequence Insurance Name Policy Number Policy Cruz Covered Member ID Cruz Member ID Guarantor Name 06/18/2025 2 [email or web address] (MEDICARE SUPPLEMENT) PLAN F Subha Ron Ponce [id number] Subha Ponce 06/13/2025 1 MEDICARE-ND (MEDICARE) Subha Ponce [id number] Subha Ponce Notes Date Note Type Note Provider Name and Address Organization Details Recorded Time 12/14/2024 text/html Dr. Ny complaint: sore in the mouthTimin-3 monthsDuration: constantLocation: buccal mucosaSeverity: moderateQuality: soft, pinkContext: Hx of burning mouth syndromeModifying factors: may be related to biting/grinding, has used dexamethasone elixir or gabapentin 300 mgAssoc signs and symptoms: oral lesions, tenderness, no bleeding ANN GARCIA MD [address] [place], [address], [facility] 12/14/2024 18:20:09 12/14/2024 text/html ROS as noted in the HPI Subha is an 84 year old female see today as a follow up on biopsy proven dermatomyositis. Subha was last seen here in our rheumatology department 06/13/24. Otherwise stays on hydroxychloroquine 200 mg twice daily. She does not have any muscle involvement predominantly skin disease. She has a scar/growth in her mouth that irritates her. Has seen a ENT for it which she got referred to someone at , who recommended a compound gel. She denies any B type symptoms. Appetite stable weight is stable RAJESH CUMMINS MD [address] [place] [address], [phone], [facility] 12/14/2024 10:42:26 01/31/2025 text/html Chief complaint: sore in the mouthTimin-6 moDuration: constantLocation: right buccal mucosaSeverity: moderateQuality: hardContext: Hx of burning mouth syndromeModifying factors: biopsied/excised by Dr. Jeffy Garcia 12/14/24 - neg for dysplasia and malignancy -showed evidence of fungal elements and was treated with nystatin. Sore has returned, viscous lidocaine solution with only temporary improvement. on dexamethasone elixir x 7 days, frequently rubs/picksAssoc signs and symptoms: right sided mouth sore, she can not eat anything spicy or brush her teeth with out experiencing pain/discomfort, no bleeding MARSHALL BARBOUR MD [facility] [place], [address], [facility] 01/31/2025 15:14:47 01/31/2025 text/html ROS as noted in the HPI Subha is an 84 year old female see today for a work in for mouth sores. Subha was last seen here in our rheumatology department 12/14/24. In terms of dermatomyositis, on hydroxychloroquine 200 mg twice daily. Has had painful mouth sores, right buccal mucosa. Status post excision lesion buccal mucosa 12/14/2024 findings consistent with candidiasis. She wants to see if this can be removed. Otherwise she does have scalp itching. She does not have any muscle involvement predominantly skin disease. She denies any B type symptoms. Appetite stable weight is stable RAJESH CUMMINS MD [facility] [place], [address], [facility] 01/31/2025 10:05:38 06/13/2025 text/html ROS as noted in the HPI Subha is an 85 year old female see today for evaluation management of dermatomyositis. Subha was last seen here in our rheumatology department 01/11/25. In terms of dermatomyositis, on hydroxychloroquine 200 mg twice daily. The sores in the mouth are better. Still has some scalp lesion for which she is use clobetasol shampoo. Concerned about the cost. Status post excision lesion buccal mucosa 12/14/2024 findings consistent with candidiasis. Pointed well to the nystatin. No constitutional symptoms. No fevers or chills. She does not have any muscle involvement predominantly skin disease. She denies any B type symptoms. Appetite stable weight is stable RAJESH CUMMINS MD [facility] [place], [address], [facility] 06/14/2025 12:04:37 OBGyn Episode No OBEpisode recorded.
--- OUTSIDE RECORDS SUMMARY | 2025-09-20 07:16 | XMS_ITS | Clinical Summary ---
Author Organization [facility] Address [address] [place] [address] Phone Care Team Providers Care Checkroom Attendant Name Role Phone Alessio BOOKER, Tyree Ramirez [...]
--- OUTSIDE RECORDS SUMMARY | 2025-09-20 07:17 | XMS_ITS | Encounter Summary ---
Author Organization [facility] Address [address] [place] [address] Care Team Providers Care Cement Block Maker Name Role Phone Maico Pearson MD Primary Care Provider [phone] Reason for Visit * Reason Comments Med Refill Encounter Details Date Type Department Care Team (Late Contact Info) Description 09/19/2025 Refill [facility] [address] [facility] [address] [place] [address] Jessee Sutton MD [address] [facility] [address] [place] [address] Med Refill Social History Tobacco Use Types [...] on file documented as of this encounter Plan of Treatment Upcoming Encounters Date Type Department Care Team (Late Contact Info) Description 05/13/2026 4:00 PM EDT Office Visit [facility] [address] [facility] [address] [place] [id number] Jessee Sutton MD [address] [facility] [address] [place], [place] [id number] documented as of this encounter Visit Diagnoses Not on filedocumented in this encounter Care Teams Cement Block Maker Relationship Specialty Start Date End Date Maico Pearson MD [address] [facility] [address] [place] [address] PCP - General Adolescent Medicine 09/02/23 documented as of this encounter
--- OUTSIDE RECORDS SUMMARY | 2025-09-20 07:17 | XMS_ITS | Data Portability ---
Author Organization [facility] - Ray zimmerman MD, Main Office Address [address] [place] [address], [address] [address] Assessment No assessment recorded. Plan of Treatment Reminders Order Date Submit Date Provider Last Modified By Organization Details Last Modified Time Details Appointments None record ed. Lab None record ed. Referral None record ed. Procedures None record ed. Surgeries None record ed. Imaging None record ed. Medication Orders None record ed. Patient TargetsNo targets recorded. Patient Instructions Encounter Date Encounter Id Patient Instructions Last Modified By Organization Details Last Modified Time 04/24/2021 [id number] Carpal Tunnel Syndrome: Care Instructions [email or web address] Not available 04/24/2021 14:20:03 Reason for Referral None Reported. Results Created Date Observation Date Name Description Value Unit Range Abnormal Flag Note LastModifiedBy Organization Detail LastModifiedTime 04/24/20 21 04/24/2021 elect romyo gram + nerve condu ction study No observ ation record ed. BARCODE Not Available 2020 14:26:29 Result Notes None recorded. Problems No Known Problems Procedures Surgical History Date Name Laterality Status Provider Name and Address Organization Details Recorded Time 04/24/2021 NCV/EMG completed Mason Desouza MD 04/24/2021 14:09:20 Imaging Results None recorded. Procedure Notes None recorded. Medical Equipment None Reported. Allergies No known drug allergies Medications Name Sig Start Date Stop Date Status Note LastModified by Organization Details LastModified Time losartan 50 mg tablet TAKE 1 TABLET BY MOUTH ONCE DAILY active Not Available Not Available No t Available prednisone 10 mg tablet TAKE 1 TABLET BY MOUTH TWICE DAILY FOR 10 DAYS active Not Available Not Available No t Available atorvastatin 20 mg tablet TAKE 1 TABLET BY MOUTH ONCE DAILY AT NIGHT active Not Available Not Available No t Available ropinirole 1 mg tablet TAKE ONE TABLET BY MOUTH 1 TO 3 HOURS BEFORE BEDTIME ONCE DAILY active Not Available Not Available N ot Available metoprolol succinate ER 50 mg tablet,exten ded release 24 hr TAKE 1 TABLET BY MOUTH ONCE DAILY active Not Available Not Available No t Available prednisone 20 mg tablet TAKE 2 TABLETS BY MOUTH ONCE DAILY FOR 5 DAYS active Not Available Not Available No t Available alendronate 70 mg tablet active Not Available Not Available Not Available estradiol 0.05 mg/24 hr weekly transdermal patch active Not Available Not Available Not Available potassium chloride ER 10 mEq tablet,exten ded release active Not Available Not Available Not Available clopidogrel 75 mg tablet TAKE 1 TABLET BY MOUTH ONCE DAILY active Not Available Not Available No t Available omeprazole 40 mg capsule,radha yed release TAKE 1 CAPSULE 30 MINUTES BEFORE MORNING MEAL ONCE DAILY active Not Available Not Available No t Available tramadol 50 mg tablet TAKE 1 TABLET BY MOUTH EVERY 6 TO 8 HOURS NEEDED FOR PAIN FOR 10 DAYS active Not Available Not Available No t Available triamcinolon e acetonide 0.1 % topical cream APPLY CREAM EXTERNALLY TWICE DAILY FOR 10 DAYS active Not Available Not Available Not Available lorazepam 0.5 mg tablet TAKE 1 TABLET BY MOUTH EVERY 6 HOURS NEEDED FOR ANXIETY FOR 30 DAYS active Not Available Not Available No t Available metocloprami de 5 mg tablet active Not Available Not Available Not Available temazepam 30 mg capsule TAKE 1 CAPSULE BY MOUTH AT BEDTIME FOR REST active Not Available Not Available No t Available levothyroxin e 50 mcg tablet active Not Available Not Available Not Available nitrofuranto in macrocrystal 100 mg capsule TAKE 1 CAPSULE BY MOUTH TWICE DAILY FOR 5 DAYS active Not Available Not Available No t Available hydrochlorot hiazide 12.5 mg capsule TAKE 1 CAPSULE BY MOUTH ONCE DAILY IN THE MORNING active Not Available Not Available Not Available hydralazine 50 mg tablet TAKE 1 TABLET BY MOUTH TWICE DAILY WITH FOOD active Not Available Not Available No t Available nitrofuranto in monohydrate/ macrocrystal s 100 mg capsule TAKE 1 CAPSULE BY MOUTH TWICE DAILY WITH FOOD FOR 10 DAYS active Not Available Not Available No t Available zolpidem ER 12.5 mg tablet,exten ded release,mult iphase TAKE 1 TABLET BY MOUTH ONCE DAILY NEEDED AT BEDTIME FOR REST FOR 30 DAYS active Not Available Not Available No t Available Belsomra 10 mg tablet TAKE 1 TABLET BY MOUTH AT BEDTIME NEEDED FOR 14 DAYS active Not Available Not Available No t Available Vitals None Recorded Social History None recorded. Functional Status None recorded. Mental Status None recorded. Family History Nothing Reported. Medical History No medical history recorded. Gynecological HistoryNo gynecological history recorded. Obstetrics History GPAL:G 0 P 0 0 0 0 Past Encounters Encounter ID Performer Location Encounter Start Date Encounter Closed Date Diagnosis/Indication Diagnosis SNOMED-CT Code Diagnosis ICD10 Code Diagnosis IMO Codes Diagnosis Note [id number] Ray Desouza MD Main Office [address] [facility], [facility] [address] [place] [address] 04/24/2021 13:15:27 04/24/2021 14:10:41 Bilateral carpal tunnel syndrome [id number] G56.03 Severe right, Moderate to severe left CTS. Health Concerns Section Related Observation LastModified by Organization Detai ls LastModified Time None Recorded Concern Status LastModified by Organization Details LastModified Time None Recorded Advance Directives Directive None Recorded Payers Insurance Date Sequence Insurance Name Policy Number Policy Cruz Covered Member ID Cruz Member ID Guarantor Name 04/24/2021 2 [employer] (MEDICARE SUPPLEMENT) [employer] [id number] [employer] 04/24/2021 1 [place] Subha M [employer] [id number] Subha [employer] 04/24/2021 2 [employer] [id number] Subha [employer] OBGyn Episode No OBEpisode recorded.
[2025-09-20 08:02] LABS: Hematocrit 35.3 % (37.0-47.0); Hemoglobin 10.9 g/dL (12.2-16.2); Immature Granulocytes % 0.2 %; Mean Corpuscular HGB Conc 30.9 g/dL (31.8-35.4); Mean Corpuscular Hemoglobin 29.5 pg (27.0-31.2); Mean Corpuscular Volume 95.4 fl (81-99); Nucleated Red Blood Cells % 0 %; Platelet Count 182 K/mm3 (142-424); Red Blood Count 3.70 M/mm3 (4.20-5.40); Red Cell Distribution Width-SD 49.3 fL; White Blood Count 4.6 K/mm3 (4.8-10.8)
[2025-09-20 08:54] LABS: Alanine Aminotransferase 16 U/L (12-78); Albumin Level 3.8 g/dl (3.5-5.0); Albumin/Globulin Ratio 1.0 (1.1-1.8); Alkaline Phosphatase 80 U/L (38-126); Anion Gap 9.3 mEq/L (5-15); Aspartate Amino Transferase 25 U/L (14-36); Bilirubin,Total 0.8 mg/dl (0.2-1.3); Blood Urea Nitrogen 26 mg/dl (7-17); Calcium 9.2 mg/dl (8.4-10.2); Carbon Dioxide 28 mmol/L (22.0-30.0); Chloride 104 mmol/L (98-107); Creatinine,Serum 1.20 mg/dl (0.52-1.04); Estimated Glomerular Filt Rate 43 ml/min (>60); GFR (African American) 52 ML/MIN (>60); Globulin 4.0 g/dL (1.3-3.2); Glucose 105 mg/dl (74-100); Potassium 4.3 mmoL/L (3.5-5.1); Sodium 137 mmol/L (136-145); Total Protein,Serum 7.8 g/dl (6.3-8.2)
[2025-09-20 09:05] LABS: Hemoglobin A1C 5.8 % (4.0-6.0)
[2025-09-21 15:14] LABS: Insulin Level Total 12.0 uIU/mL (2.6-24.9)
== END 2025-09-20 23:59 | disposition home or self-care (01) ==
PROVIDERS: PCP Internal Medicine Adolescent Medicine; Visit Provider Nurse Practitioner Family
DX: E16.2 Hypoglycemia, unspecified (principal); R59.0 Localized enlarged lymph nodes; Z85.72 Personal history of non-Hodgkin lymphomas; R58 Hemorrhage, not elsewhere classified
CPT/HCPCS: 36415; 80053; 82533; 83036; 83525; 85025